=== PATIENT | male | born 1940 | race Caucasian/White ===

== ENCOUNTER 2024-10-16 13:25 | Inpatient (IN) | payer OTHER, MEDICARE, SELFPAY ==
[2024-10-16] VITALS (11 sets, daily range): BP systolic 82–158; BP diastolic 50–91; PULSE 69–98; RESP 17–20; TEMP 36.6–37.3; O2SAT 94–100; BMI 25.9
--- NOTE | 2024-10-16 13:56 | ED_ITS ---
HPI - Extremity Problem 2 General: Chief complaint: Extremity Problem,Nontraumatic Stated complaint: swelling in left arm Time Seen by Provider: 10/16/24 13:28 Source: patient and family (daughter in law) Mode of arrival: ambulatory Limitations: no limitations History of Present Illness: Patient is an 84-year-old male presents to ED today along with his sdulwudv-ia-cxy for concerns of pain and swelling to his left arm. Nyfpmqji-ph-ryy states patient was living in [place]. After the recent passing of his , he was sent to a correction/assisted living facility. Daughter in law states he was not being cared for there so she moved him home. She has only had him for approximately a week. She is not well versed in his medical history but her /son of the patient does know some. He tells me he has a history of Fletcher cell carcinoma and has required previous surgeries and radiation to the arm as well as a lymphadenectomy. They were told that that the arm was going to have some degree of chronic swelling following this. Daughter states he does have a chronic open wound to the lateral aspect of the elbow. She states she brought patient to the emergency department today because area seems significantly swollen, it is red and warm to the touch, has copious amounts of drainage, and patient is having significant tenderness. She states most of his previous medical care has been performed at [facility] as well as [place] in [place]. PMH (according to documentation from [facility][1]) is depression, Tovar Parkinson White, prior CVA, chronic thrombocytopenia, coronary artery disease, hypertension, hyperlipidemia, chronic kidney disease, dementia. Daughter states his only medication is his dementia pill and a vitamin supplement. MD Complaint: extremity pain, extremity swelling, joint swelling and joint pain Onset (ago): day(s) Pain Consistency: constant Location: left and upper extremity Radiation: distal Relieving factors: nothing Exacerbating factors: range of motion Associated symptoms: Reports no associated symptoms; Deny chest pain or fever(s) Related Data Home Medications ?Medication ?Instructions ?Recorded ?Confirmed aspirin 81 mg tablet,delayed 81 mg PO BEDTIME 10/16/24 10/16/24 release (Cinthia Low Dose Aspirin) cholecalciferol (vitamin D3) 125 125 mcg PO BEDTIME 10/16/24 mcg (5,000 unit) tablet (Vitamin D3) Allergies Allergy/AdvReac Type Severity Reaction Status Date / Time No Known Allergies Allergy Verified 10/16/24 13:38 Review of Systems 2 Const: Denies: fever(s), chills, body aches, fatigue or malaise Card: Denies: chest pain Resp: Denies: dyspnea GI: Denies: abdominal pain Musc: Reports: extremity pain, extremity swelling, joint pain, joint swelling, joint redness and joint warmth; Denies: neck pain or back pain Skin/Breast: Reports: other (drainage chronic L elbow wound) Neuro: Denies: numbness in extremities, weakness in extremities or sensory changes PFSH ED 2 PFSH: Medical History (Updated 10/16/24 @ 17:26 by CHASITY Childs) CKD (chronic kidney disease) Chronic wound of extremity Dementia MDD (major depressive disorder) CAD (coronary artery disease) Nogwz-Biclmirpz-Tqaij syndrome Chronic idiopathic thrombocytopenia Essential hypertension Augusto cell carcinoma Physical Exam 2 Const: COMMON NORMALS: no acute distress, average body habitus, no limitations, healthy appearing, alert and well nourished GENERAL APPEARANCE: cooperative OTHER: chronic dementia-at baseline per family HENMT: COMMON NORMALS: normocephalic and atraumatic HEAD & SCALP: normal to inspection, normocephalic and atraumatic Resp: COMMON NORMALS: normal respiratory effort and clear to auscultation bilaterally AUSCULTATION: clear to auscultation bilaterally Cardio: COMMON NORMALS: regular rate and regular rhythm RATE: regular rate RHYTHM: regular rhythm Extremity: NARRATIVE EXTREMITY EXAM: GENERAL: Yes normal exam except as noted OTHER: see graphic above; edema starting near proximal elbow and extending distally to his hand; he has significant pain with palpation and ROM of elbow, wrist or digits; radial pulse intact; sensation/cap refill chava; drainage noted from chronic lateral elbow wound-cultured; overlying erythema/warmth near elbow Neuro: COMMON NORMALS: moves all extremities, no focal motor deficits and no sensory deficits noted SENSORIUM/ORIENTATION: Yes alert Skin: NARRATIVE SKIN EXAM: see above Course 2 Consultations: Consultation #1: Dr. Carrasquillo-consulted on patient here in ED, recommending hospitalist admission, IV abx Consultation #2: Dr. Asfi-accepts hospitalization Vital Signs: Vital signs: Vital Signs Temperature 97.8 F 10/16/24 13:27 Pulse Rate 75 10/16/24 17:00 Respiratory Rate 20 H 10/16/24 14:42 Blood Pressure 153/75 10/16/24 17:00 Pulse Oximetry 95 10/16/24 17:00 Oxygen Delivery Me thod Room Air 10/16/24 17:00 MDM - Extremity (Nontraumatic) Medical Decision Making Patient will be admitted to the hospital for treatment of a left forearm cellulitis at this time. He has been consulted on by Dr. Carrasquillo. Please see his note for further orthopedic evaluation. He was started on IV antibiotics-ortho recommending compression/splint. He will be admitted to hospitalist. Medical Records I reviewed the patient's medical records. Lab Data I reviewed the patient's lab results. 10/16/24 14:28 10/16/24 14:[address] 10/16/24 14:14 IMPRESSION: 1. Elbow joint effusion with surrounding inflammatory changes suggestive of reactive versus septic arthritis. 2. No abscess formation. No bony erosions. 3. Skin irregularity at the lateral aspect of the elbow joint. Laboratory Results WBC 6.26 10^3/uL (3.29-11.43) 10/16/24 14:28 RBC 4.48 10^6/uL (3.85-5.65) 10/16/24 14:28 Hgb 14.20 g/dL (11.27-16.99) 10/16/24 14:28 Hct 42.6 % (37-53) 10/16/24 14:28 MCV 95.1 fl (82-101) 10/16/24 14:28 MCH 31.7 pg (27-33) 10/16/24 14:28 MCHC 33.3 g/dL (30-55) 10/16/24 14:28 RDW 11.9 % (12.1-15.1) L 10/16/24 14:28 Plt Count 143 10^3/cmm (157-399) L 10/16/24 14:28 MPV 10.2 fL (7.4-10.4) 10/16/24 14:28 Neut % (Auto) 56.6 % 10/16/24 14:28 Lymph % (Auto) 28.0 % 10/16/24 14:28 [place] % (Auto) 14.7 % 10/16/24 14:28 Eos % (Auto) 0.2 % 10/16/24 14:28 Baso % (Auto) 0.2 % 10/16/24 14:28 Neut # (Auto) 3.55 10^3/uL (1.8-7.7) 10/16/24 14:28 Lymph # (Auto) 1.8 10^3/uL (0.8-4.8) 10/16/24 14:28 [place] # (Auto) 0.9 10^3/uL (0.2-0.9) 10/16/24 14:28 Eos # (Auto) 0.0 10^3/uL (0.0-0.8) 10/16/24 14:28 Baso # (Auto) 0.0 10^3/uL (0.0-0.1) 10/16/24 14:28 Nucleated RBC % (auto) 0 % 10/16/24 14:28 Nucleated RBCs # 0.0 /100WBC 10/16/24 14:28 ESR 23 mm/hr (0-10) H 10/16/24 14:28 Sodium 140 mmol/L (136-145) 10/16/24 14:28 Potassium 3.9 mmol/L (3.5-5.1) 10/16/24 14:28 Chloride 104 mmol/L (98-107) 10/16/24 14:28 Carbon Dioxide 25 mmol/L (22-29) 10/16/24 14:28 Anion Gap 14.9 (5-19) 10/16/24 14:28 BUN 22 mg/dL (8-23) 10/16/24 14:28 Creatinine 1.0 mg/dL (0.7-1.2) 10/16/24 14:28 GFR Calculation Not Reportable 10/16/24 14:28 Glucose 105 mg/dL (65-115) 10/16/24 14:28 Calculated Osmolality 294 mOsm/kg (285-295) 10/16/24 14:28 Lactic Acid 1.7 mmol/L (0.5-2.2) 10/16/24 14:28 Calcium 9.0 mg/dL (8.5-10.5) 10/16/24 14:28 Total Bilirubin 0.7 mg/dL (0.15-1.2) 10/16/24 14:28 AST 24 U/L (0-40) 10/16/24 14:28 ALT 23 U/L (0-41) 10/16/24 14:28 Alkaline Phosphatase 187 U/L (40-130) H 10/16/24 14:28 Creatine Kinase 35 U/L (39-308) L 10/16/24 14:28 C-Reactive Protein 113.4 mg/L (0.0-4.9) H 10/16/24 14:28 Total Protein 6.1 g/dL (6.6-8.7) L 10/16/24 14:28 Albumin 3.1 g/dL (3.5-5.2) L 10/16/24 14:28 Globulin 3.0 g/dL (1.3-4.6) 10/16/24 14:28 All radiology interpretation(s) finalized by discharge Discharge Plan Discharge Patient Disposition: Admitted As Inpatient Clinical Impression: Augusto cell carcinoma, Cellulitis of left elbow Condition: Stable Prescriptions: No Action aspirin [Cinthia Low Dose Aspirin] 81 mg Tablet,Delayed Release (Dr/Ec) 81 mg PO BEDTIME cholecalciferol (vitamin D3) [Vitamin D3] 125 mcg (5,000 unit) Tablet 125 mcg PO BEDTIME Print Language: Chinese Coding Level of Care Code ED [employer] for [employer]
--- NOTE | 2024-10-16 14:00 | PC.NURSE ---
[facility] [place] [facility] [facility].
--- NOTE | 2024-10-16 14:14 | CTR_ITS ---
PROCEDURE INFORMATION: Exam: CT Left Upper Extremity With Contrast, Elbow Exam date and time: 10/16/2024 3:17 PM Age: 84 years old Clinical indication: Pain; Left; Prior surgery; Surgery date: 6+ months; Surgery type: Radiation therapy for skin cancer on lateral side of lt elbow 2 years ago; Additional info: Severe pain, edema, draining wound TECHNIQUE: Imaging protocol: Computed tomography of the left upper extremity with contrast. Exam focused on the elbow. Radiation optimization: All CT scans at this facility use at least one of these dose optimization techniques: automated exposure control; mA and/or kV adjustment per patient size (includes targeted exams where dose is matched to clinical indication); or iterative reconstruction. Contrast material: OMNIPAQUE 350; Contrast volume: 100 ml; Contrast route: INTRAVENOUS (IV); COMPARISON: No relevant prior studies available. RADIATION DOSE METRICS: Total DLP (mGy-cm): 611.92 FINDINGS: Bones/joints: Moderate elbow joint effusion. There is a 4 mm joint body in the volar aspect of the elbow joint. Skin thickening and irregularity at the lateral aspect of the elbow to be correlated with clinical exam. No organized collections. No acute fracture or dislocation. Soft tissues: Surgical clips in the left axilla. There is subcutaneous fat stranding surrounding the elbow. Subcutaneous calcifications overlying the olecranon, likely related to fat necrosis. CT/CT elbow LT w con [id number] IMPRESSION: 1. Elbow joint effusion with surrounding inflammatory changes suggestive of reactive versus septic arthritis. 2. No abscess formation. No bony erosions. 3. Skin irregularity at the lateral aspect of the elbow joint.
[2024-10-16 14:37] LABS: Basophils % 0.2 %; Eosinophils % 0.2 %; Hematocrit 42.6 % (37-53); Lymphocytes # 1.8 10^3/uL (0.8-4.8); Mean Corpuscular HGB Conc 33.3 g/dL (30-55); Mean Corpuscular Hemoglobin 31.7 pg (27-33); Mean Corpuscular Volume 95.1 fl (82-101); Mean Platelet Volume 10.2 fL (7.4-10.4); Monocytes # 0.9 10^3/uL (0.2-0.9); Monocytes % 14.7 %; Neutrophils # 3.55 10^3/uL (1.8-7.7); Neutrophils % 56.6 %; Nucleated Red Blood Cells % 0 %; Platelet Count 143 10^3/cmm (157-399); Red Blood Count 4.48 10^6/uL (3.85-5.65); Red Cell Distribution Width 11.9 % (12.1-15.1); White Blood Count 6.26 10^3/uL (3.29-11.43)
[2024-10-16] MEDS: vancomycin 1,250 MG/250 ML PIGGYBACK 166.67 MG IV (14:41)
[2024-10-16] MEDS: ondansetron 2 mg/ML SDV 2 mL 4 MG IVP (14:41)
[2024-10-16] MEDS: fentaNYL 50 mcg/mL INJ 2mL IVP (14:42)
[2024-10-16 14:52] LABS: Lactic Sepsis W/Reflex 1.7 mmol/L (0.5-2.2)
[2024-10-16 14:53] LABS: Alanine Aminotransferase 23 U/L (0-41); Albumin Level 3.1 g/dL (3.5-5.2); Alkaline Phosphatase 187 U/L (40-130); Anion Gap 14.9 (5-19); Aspartate Amino Transferase 24 U/L (0-40); Blood Urea Nitrogen 22 mg/dL (8-23); C Reactive Protein 113.4 mg/L (0.0-4.9); Carbon Dioxide 25 mmol/L (22-29); Chloride 104 mmol/L (98-107); Creatine Phosphokinase 35 U/L (39-308); Creatinine Clr Calc Pharmacy 57.9069; Glucose 105 mg/dL (65-115); Osmolality Calculated 294 mOsm/kg (285-295); Potassium 3.9 mmol/L (3.5-5.1); Sodium 140 mmol/L (136-145); Total Bilirubin 0.7 mg/dL (0.15-1.2); Total Protein 6.1 g/dL (6.6-8.7)
[2024-10-16 14:59] LABS: Erythrocyte Sedimentation Rate 23 mm/hr (0-10)
--- NOTE | 2024-10-16 15:42 | PC.PHAR ---
Family States Patient takes a pill for dementia ,but not sure what it is. They think it starts with a D .
--- NOTE | 2024-10-16 17:10 | PM.HP ---
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 Per family he recently moved to [place] 1 week ago. Prior to move he was living in [place], had 4 months ago and he was not doing well in a group home. Family assumed care and brought him to [place]. He has no current physician locally. Pt has hx of multiple surgeries for bony lesion removals, radiation and chemotherapy for carcinoma. Last seen by oncology 4 months ago. Per grandson failed chemo, surgeries and radiation, desired to monitor. No f/u thereafter. Per patient and family the L elbow has progressively worsened over past 1 week. Daughter concerned as it has been draining purulent fluid, has also become red, warm and swollen. Grandson had dPOA. Daughter states he is only taking his dementia medicine and is unsure of what else he is supposed to be on. After discussion with grandson, he is also taking Vit D3 but has stopped taking ASA, statin, and unknown anti-depressant. When asked about blood pressure or rate stabilizing medication he denied knowing of any medication. Pt complaining of significant pain when moving elbow. CT elbow (10/16/24): ?joint effusion with surrounding inflammatory changes suggestive of reactive vs septic arthritis. No visible abscess formation or bony erosion. Skin irregularities at lateral aspect. Dr. Carrasquillo was consulted from the ED and stated he will see in AM and should be started on antibiotics. ? Review of Systems General: Reports: 10 or more systems reviewed and unremarkable except in HPI and below Const: Denies: fever(s) or chills Eyes: Denies: change in vision or blurry vision ENMT: Denies: throat pain, odynophagia or hoarseness Card: Denies: chest pain, palpitations or dyspnea on exertion Resp: Denies: dyspnea, productive cough, non-productive cough or wheezing GI: Denies: abdominal pain, nausea, vomiting, diarrhea or constipation Musc: Reports: extremity pain (L upper extremity) and extremity swelling; Denies: neck pain, back pain or joint pain Skin/Breast: Reports: skin tenderness, skin swelling, changing lesions and lesions; Denies: rash or new lesions Neuro: Denies: headache(s), numbness in extremities or weakness in extremities Medications/Allergies Home Medications ?Medication ?Instructions ?Recorded ?Confirmed ?Last Taken ?Type aspirin 81 mg tablet,delayed 81 mg PO BEDTIME 10/16/24 10/16/24 10/15/24 20:00 History release (Cinthia Low Dose Aspirin) cholecalciferol (vitamin D3) 125 125 mcg PO BEDTIME 10/16/24 10/16/24 10/15/24 20:00 History mcg (5,000 unit) tablet (Vitamin D3) Allergies Allergy/AdvReac Type Severity Reaction Status Date / Time No Known Allergies Allergy Verified 10/16/24 13:38 PFSH Acute PFSH: Medical History (Updated 10/16/24 @ 17:26 by CHASITY Childs) CKD (chronic kidney disease) Chronic wound of extremity Dementia MDD (major depressive disorder) CAD (coronary artery disease) Hgbpz-Ddzwsffbx-Gfrxc syndrome Chronic idiopathic thrombocytopenia Essential hypertension [place] cell carcinoma Vitals/I&O/Wt Last Vital Signs Temp 97.8 F 10/16/24 13:27 Pulse 75 10/16/24 17:00 Resp 20 H 10/16/24 14:42 BP 153/75 10/16/24 17:00 Pulse Ox 95 10/16/24 17:00 O2 Del Method Room Air 10/16/24 17:00 10/16/24 10/16/24 10/16/24 06:59 14:59 22:59 Intake Total 250 / 250 Balance 250 / 250 Weight last 48 hrs Weight 170 lb Physical Exam Narrative: General: AOx3, no acute distress, well developed, well nourished, appears stated age psych: appropriate mood and affect. good judgment and insight. Eyes: conjunctiva clear w/o exudate or hemorrhage. non-icteric, EOM intact, PERRLA. no signs of nystagmus Nose: nasal mucosa pink, septum midline Oropharynx: good dentition, Neck: FROM, no lymphadenopathy, no tracheal deviation, non tender, thyroid gland normal w/o mass. supple Chest: atraumatic, symmetrical CVD: RRR, normal S1 and S2, no M/R/G. 2+ pulse x 4 extremities, no JVD, no carotid bruit. Lungs: clear lung sounds in all doe, no rhonchi, wheezing, rales. Abdomen: NT, ND, soft, NABS. No hepatosplenomegaly, no mass. umbilicus midline w/o herniation : not done on todays examination Rectal: not done on todays examination Spine: no visible deformities, FROM, 5/5 strength. no paraspinal ttp.non tender bony features. no discomfort with ROM Extremities: FROM and 5/5 strength in RUE and BLE. no visible joint abnormalities on active and passive ROM. -L shoulder: limited ROM 2/2 shoulder pain. no ttp -L hand: limited ROM 2/2 pain in L elbow. able to slowly move fingers in pain. full sensation -L shoulder: ALICE wrap just placed by ortho. refer to ortho and ED note for description. Neuro: CNII-XII grossly intact, no sensory abnormalities. Skin:? per ED and ortho note as wound is wrapped Data 10/16/24 14:28 10/16/24 14:28 Micro: Microbiology 10/16/24 14:04 Gram Stain - Final Elbow - Left 10/16/24 14:44 Blood Culture - Preliminary Blood SPECIMEN COLLECTED 10/16/24 14:28 Blood Culture - Preliminary Blood SPECIMEN COLLECTED A&P Assessment and plan (1) Chronic wound of extremity: (2) Augusto cell carcinoma: (3) Essential hypertension: (4) Chronic idiopathic thrombocytopenia: (5) Fsgwx-Cnkrfugkt-Grcon syndrome: (6) CAD (coronary artery disease): (7) MDD (major depressive disorder): (8) Dementia: (9) CKD (chronic kidney disease): Plan A: -chronic wound LEFT elbow -Hx of Augusto Cell carcinoma -s/p radiation and surgery -chronic thrombocytopenia -CAD -Cassius parkinson white syndrome -HTN -dementia -CKD P: -Admit to med surg -s/p Vanc, Zosyn and ancep in ED, fentanyl given -Abx: IV Vanc and Zosyn, pending blood cultures -pain: [place] scheduled, Toradol PRN, morphine PRN. -LR 75cc/hr + PO intake -Ortho Consulted: Discussed with Dr. Carrasquillo in ED -cardiac diet -NPO at ok for possible debridement -Lovenox 40mg -FULL CODE -will need to attain further records from [place]: [facility] as well as [facility] Indira Laboy (grandson): [phone] PDMP PDMP Reviewed: Not Reviewed Attestations Medical Necessity Statement*: will require 2 overnight stays for septic joint Coding Level of Care Code 04251 Diagnoses Chronic wound of extremity [place] cell carcinoma C4A.9 Essential hypertension I10 Chronic idiopathic thrombocytopenia D69.3 Emblb-Djxwrxeib-Dtxyg syndrome I45.6 CAD (coronary artery disease) I25.10 MDD (major depressive disorder) F32.9 Dementia F03.90 CKD (chronic kidney disease) N18.9
[2024-10-16] MEDS: ketorolac 30 mg/mL INJ IVP (17:12)
[2024-10-16] MEDS: morphine 4 mg/mL SDV 1 mL IVP (17:42)
[2024-10-16] MEDS: piperacillin-tazobactam 3.375 GM in sodium chloride 0.9% (plus) 50 ML IV (17:43)
--- NOTE | 2024-10-16 18:04 | PC.NURSE ---
AFTER PT WAS GIVEN 4MG MORPHINE IVP, PT O2 SAT WENT TO 87% WHILE RESTING WITH EYES CLOSED, THIS NURSE PLACED 2L NC, ELIJAH MA NOTIFIED AND AWARE.
[2024-10-16] MEDS: enoxaparin 40 mg/0.4 mL Syringe SUBCUT (18:55)
[2024-10-16] MEDS: sodium chloride 0.9% 1,000 ML 75 ML IV (18:56)
--- NOTE | 2024-10-16 23:05 | PM.CONSULT ---
Providers/Reason For Consult Consulting Physician/Specialty*: Barrie Carrasquillo DO/orthopedic surgery Reason for Consult*: Left elbow cellulitis/infection with draining wound Requesting Physician: Teresa Stein?PA-C Attending Physician: Avinash Asif MD History of Present Illness History of Present Illness Zeke Covington is a 84 year old male presents emergency department with left elbow cellulitis with draining wound. History reveals patient just relocated here from [place]. 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 He has a large area of radiation over the left elbow directly laterally directly over a lateral approach to the elbow joint. Over the site there is a small open draining wound with what appears to be fatty necrosis/edematous fluid/mild purulence. Patient is a poor historian presenting with Emergency Department with [id number] and did have GRADY Laboy on the phone while we had evaluation and discussion. Given patient's drainage cellulitis and increased pain and decreased mobility to left upper extremity orthopedics was consulted for evaluation and treatment recommendations. Denies any fevers chills or chest pain or shortness of breath. H&P per emergency department listed below: Patient is an 84-year-old male presents to ED today along with his [id number]-[id number] for concerns of pain and swelling to his left arm. Thtglfxw-nj-rws states patient was living in [place]. After the recent passing of his , he was sent to a [facility]/assisted living facility. Daughter in law states he was not being cared for there so she moved him home. She has only had him for approximately a week. She is not well versed in his medical history but her /son of the patient does know some. 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 They were told that that the arm was going to have some degree of chronic swelling following this. Daughter states he does have a chronic open wound to the lateral aspect of the elbow. She states she brought patient to the emergency department today because area seems significantly swollen, it is red and warm to the touch, has copious amounts of drainage, and patient is having significant tenderness. She states most of his previous medical care has been performed at [facility] as well as [facility] in [place]. PMH (according to documentation from [facility]) is depression, Tovar Parkinson White, prior CVA, chronic thrombocytopenia, coronary artery disease, hypertension, hyperlipidemia, chronic kidney disease, dementia. Daughter states his only medication is his dementia pill and a vitamin supplement. Review of Systems General: Reports: 10 or more systems reviewed and unremarkable except in HPI and below Medications/Allergies Home Medications ?Medication ?Instructions ?Recorded ?Confirmed ?Last Taken ?Type aspirin 81 mg tablet,delayed 81 mg PO BEDTIME 10/16/24 10/16/24 10/15/24 20:00 History release (Cinthia Low Dose Aspirin) cholecalciferol (vitamin D3) 125 125 mcg PO BEDTIME 10/16/24 10/16/24 10/15/24 20:00 History mcg (5,000 unit) tablet (Vitamin D3) Allergies Allergy/AdvReac Type Severity Reaction Status Date / Time No Known Allergies Allergy Verified 10/16/24 13:38 Current Medications Generic Name Dose Route Start Last Admin Trade Name Freq PRN Reason Stop Dose Admin Hydrocodone Bitart/Acetaminophen 1 tab 10/16/24 21:00 10/16/24 21:47 Hydrocodone-Acetaminophen 5-325 Mg Tablet PO 10/19/24 20:59 Not Given TID LILY Enoxaparin Sodium 40 mg 10/16/24 18:15 10/16/24 18:55 Enoxaparin 40 Mg/0.4 Ml Syringe SUBCUT 40 mg Q24H LILY Administration Sodium Chloride 1,000 mls @ 75 mls/hr 10/16/24 18:15 10/16/24 18:56 Sodium Chloride 0.9% IV 75 mls/hr .[id number] LILY Administration PFSH Acute PFSH: Medical History CKD (chronic kidney disease) Chronic wound of extremity Dementia MDD (major depressive disorder) CAD (coronary artery disease) Dkouj-Fuarhmuqk-Kjhqk syndrome Chronic idiopathic thrombocytopenia Essential hypertension Augusto cell carcinoma Vitals/I&O/Wt Last Vital Signs Temp 99.1 F 10/16/24 20:00 Pulse 98 10/16/24 20:00 Resp 17 10/16/24 20:00 BP 120/73 10/16/24 20:00 Pulse Ox 95 10/16/24 20:00 O2 Del Method Room Air 10/16/24 20:00 10/16/24 10/16/24 10/17/24 14:59 22:59 06:59 Intake Total 300 / 300 Balance 300 / 300 Weight last 48 hrs Weight 170 lb 9.6 oz Weight 170 lb Physical Exam Narrative: Orthopedic examination: Examination left upper extremity demonstrates patient has a draining wound with edematous fatty necrosis and mild purulence appreciated the wound is roughly a centimeter by centimeter in size with fibrinous slough around it. Localized over the entire lateral aspect of the posterior aspect of the elbow patient has cellulitis with skin cellulitic appearing changes with erythema. His compartments are soft and compressible. As he moves his fingers and wrist there is excessive edematous fluid that comes out of the wound. Patient has decreased ability to move his fingers he is able to tolerate gentle passive range of motion but he is very guarded on examination he has decreased elbow range of motion with pain associated as well, able to tolerate micromotion of the elbow. No subcutaneous emphysema no palpable fluctuance, no erythema in the upper arm. patient left upper extremity does have noticeable increased swelling compared to the opposite side which apparently is slightly more baseline due to his lymph node being excised. Left upper extremity warm well-perfused. Distal pulses palpable. Data 10/19/24 02:30 10/19/24 02:30 Other Labs: Labs 10/16/2024 listed below: WBC 6.26 Hemoglobin 14.20 Platelet count 143 ESR 23 CRP 113.4 Micro: Microbiology 10/16/24 14:04 Gram Stain - Final Elbow - Left 10/16/24 14:44 Blood Culture - Preliminary Blood SPECIMEN COLLECTED 10/16/24 14:28 Blood Culture - Preliminary Blood SPECIMEN COLLECTED Other CT: Radiologist's impression: Ordering Provider/Ordering MD: Teresa Stein Date of Service: 10/16/24 Procedure(s): CT elbow LT w con [id number] Accession Number(s): [id number] Report Number: [id number] PROCEDURE INFORMATION: Exam: CT Left Upper Extremity With Contrast, Elbow Exam date and time: 10/16/2024 3:17 PM Age: 84 years old Clinical indication: Pain; Left; Prior surgery; Surgery date: 6+ months; Surgery type: Radiation therapy for skin cancer on lateral side of lt elbow 2 years ago; Additional info: Severe pain, edema, draining wound TECHNIQUE: Imaging protocol: Computed tomography of the left upper extremity with contrast. Exam focused on the elbow. Radiation optimization: All CT scans at this facility use at least one of these dose optimization techniques: automated exposure control; mA and/or kV adjustment per patient size (includes targeted exams where dose is matched to clinical indication); or iterative reconstruction. Contrast material: OMNIPAQUE 350; Contrast volume: 100 ml; Contrast route: INTRAVENOUS (IV); COMPARISON: No relevant prior studies available. RADIATION DOSE METRICS: Total DLP (mGy-cm): 611.92 FINDINGS: Bones/joints: Moderate elbow joint effusion. There is a 4 mm joint body in the volar aspect of the elbow joint. Skin thickening and irregularity at the lateral aspect of the elbow to be correlated with clinical exam. No organized collections. No acute fracture or dislocation. Soft tissues: Surgical clips in the left axilla. There is subcutaneous fat stranding surrounding the elbow. Subcutaneous calcifications overlying the olecranon, likely related to fat necrosis. CT/CT elbow LT w con [id number] IMPRESSION: 1. Elbow joint effusion with surrounding inflammatory changes suggestive of reactive versus septic arthritis. 2. No abscess formation. No bony erosions. 3. Skin irregularity at the lateral aspect of the elbow joint. A&P Assessment and plan (1) Cellulitis of left elbow: (2) Chronic wound of extremity: (3) Clinton cell carcinoma: (4) Dementia: Plan N.p.o. at midnight Hospitalist to admit patient Orthopedics consult Labs reviewed Imaging reviewed Daily dressing changes with local wound care left elbow draining wound IV antibiotics per primary Place in posterior elbow splint Elevation and compressive Tubigrip for swelling Will have patient be n.p.o. at midnight just in case he worsens, plan will be to recheck CRP after 48 hours to see how he is responding to treatment. Patient and family understand agree with current plan. Questions answered. MDM: Patient is a pleasant 84-year-old gentleman with baseline dementia. He originally lived in [place] and is now relocated here as he is lost his and is here today with his [id number]. We did during my evaluation have his POA Benoit on the phone as well. History reveals he had Clinton cell carcinoma he has had excessive radiation and oncologic treatment to the left upper extremity as well as lymph nodes excised. He has a large area on the lateral aspect of his elbow with scars from radiation and this is where he has this chronic draining wound that according to family sounds as though this has been there for over a year. Unfortunately the family son is well versed on patient's medical history but do know all of the carcinoma previous surgeries radiation and lymphadenectomy. They do know he is had baseline edema/chronic swelling to the left upper extremity and chronic wound to the lateral elbow. Given his worsening pain and cellulitis/erythema and drainage debridement emergency department for evaluation. At this point in time I talked with him in detail about his current clinical picture. At this point in time his CT scan shows no drainable abscess. There is a small palpable joint effusion on CT per the radiologist. At this point in time ideal scenario would be for a joint aspiration however given his chronic wound in the area of cellulitis that is expansile over the entire lateral and posterior aspects of the elbow this limits any ability for a joint aspiration as the [place] is soft spot is covered completely with cellulitis I talked to them about the concern with introducing a needle through patient's current skin infection and introducing this into the joint whereas if the joint swelling is more just from inflammatory versus septic which at this point in time is unable to be differentiated from an imaging standpoint. As a result we talked about options here moving forward given his age as well as with this area of having excessive radiation this is directly over the lateral aspect of the elbow where the draining wound is where patient has had his excessive radiation and radiation changes throughout his skin on this aspect as a result I feel as though having a large open incision in this area will now render a even larger wound that we will have no ability to heal given his radiation in this area. As a result I talked about them with this in detail and I think the best approach would be for treating his cellulitis from the standpoint of IV antibiotics empirically admission by hospitalist team will work on compressive dressings as well as a elbow splint just to give him a period of immobilization. My plan would be to recheck him tomorrow morning to make sure he is having some improvement in his symptoms would like to recheck his CRP after 48 hours to see how he is trended to and responded to the IV antibiotics.. At that point in time goal would be after 48 hours if cellulitis is resolved now I would actually have a spot through the [place] a soft spot to do a joint aspiration but at this point time this is covered with cellulitis and would be in my opinion not appropriate to proceeding with this today which I talked about this with them in detail and they were completely agreeable and understanding with current plan. This point time will admit to hospitalist IV antibiotics orthopedics will continue to follow n.p.o. midnight just in case he continues to worsen and we will recheck CRP in 48 hours. Patient, kershpfi-[id number], POA understand and agree with current plan. All questions answered. 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
[2024-10-17] VITALS (8 sets, daily range): BP systolic 112–150; BP diastolic 63–86; PULSE 66–96; RESP 16–18; TEMP 36.4–36.9; O2SAT 93–97
[2024-10-17] MEDS: piperacillin-tazobactam 3.375 GM in sodium chloride 0.9% (plus) 50 ML IV ×3 (02:54→17:39)
[2024-10-17] MEDS: VANCOMYCIN ADD-Vantage 750 MG in 0.9% NaCl ADD-Vantage 250 ML 250 MG IV ×2 (04:47→16:31)
--- NOTE | 2024-10-17 07:08 | PHA.VACGOAL ---
Vancomycin Goal - Goal Vancomycin Goal:: 10-15 mg/L Vancomycin Indication:: SSTI - Therapy Current therapy:: Pip/Tazo Day of therpy:: Day [1]of [] . Actual body weight (kg): 76.884 kg - Data Labs: WBC Cancelled 10/17/24 05:45 Corrected WBC Cancelled 10/17/24 05:45 RBC Cancelled 10/17/24 05:45 Hgb Cancelled 10/17/24 05:45 Hct Cancelled 10/17/24 05:45 MCV Cancelled 10/17/24 05:45 MCH Cancelled 10/17/24 05:45 MCHC Cancelled 10/17/24 05:45 RDW Cancelled 10/17/24 05:45 Sodium 140 mmol/L (136-145) 10/16/24 14:28 Potassium 3.9 mmol/L (3.5-5.1) 10/16/24 14:28 Chloride 104 mmol/L (98-107) 10/16/24 14:28 Carbon Dioxide 25 mmol/L (22-29) 10/16/24 14:28 Anion Gap 14.9 (5-19) 10/16/24 14:28 BUN 22 mg/dL (8-23) 10/16/24 14:28 Creatinine 1.0 mg/dL (0.7-1.2) 10/16/24 14:28 GFR Calculation Not Reportable 10/16/24 14:28 Treatment plan:: new consult Regimen:: New start vancomcyin for SSTI. No history of vancomycin found. Given load dose of 1250 mg given in ER. Started on maintenance dose of 750 mg q12h.
[2024-10-17] MEDS: pantoprazole DR 40 mg Tablet PO (08:48)
[2024-10-17] MEDS: HYDROcodone-acetaminophen 5-325 mg Tablet 1 TAB PO ×2 (08:49→15:05)
--- NOTE | 2024-10-17 09:46 | PC.CHAP ---
Pastoral Care Encounter/Spiritual Assessment Type of Contact [] Declined i&c technician visit [] Patient/Family/Request visit [] Outpatient visit [] Follow-up visit [] Physician referral [] Code/Alert [x] Routine visit [] Staff referral [] Actively dying [x] Patient sleeping [] Family support [] [] Out of room [] Palliative care [] [] Receiving care in room [] Pre-surgical visit [] Trauma [] Long length of stay [] ICU visit [] Other: Relational/Emotional Strength [] Patient feels connected with others/family/visitors/staff [] Distress [] Loneliness/isolation [] Abandonment Spirituality of Patient [] Person of Ct [] Attends Gnosticism of their Ct [] Believes in Prayer [] Reads Bible or Adventist materials [] There are Spiritual issues to be addressed [employer] Interventions [x] Prayer [] Active listening [] Non-anxious presence [] Spiritual/emotional support [] Crisis/trauma care [] Spiritual counseling [] Bereavement support [] Provided bereavement packet [] Provided Bible/devotional materials [] Provided toy/stuffed animal, coloring book to patient or family member [] Provided Communion [] Anointing/[place] [] Salvation [] Completed spiritual assessment [] Other: Impact on Illness or Injury [] Angry [] Fearful [] Anxious [] Often cries [] Exhaustion [] Unable to work [] Unable to attend latter-day [] Unable to walk/stand [] Unable to read [] Unable to drive [] Unable to eat/drink [] Unable to sleep [] Unable to be with family [] Patient intubated [] Other: Summary Time spent with patient
[2024-10-17 13:16] LABS: Estmated Average Glucose 100; Hemoglobin A1C 5.1 % (4.0-6.0)
[2024-10-17 13:39] LABS: Iron 31 ug/dL (59-158); Thyroid Stimulating Hormone 1.43 uIU/mL (0.27-4.20); Vitamin B12 334 pg/mL (232-1245)
[2024-10-17 13:46] LABS: Total Iron Binding Capacity 163 mcg/dl; Unsaturated Iron Binding 132 ug/dL (112-347)
--- NOTE | 2024-10-17 14:58 | P.PN_ITS ---
Subjective 2 Subjective: Hospital course, labs appreciated. Patient seen with family at bedside. Patient laying comfortably in bed. States pain is improving. Denies any nausea, vomiting, headache. Vitals/I&O/Wt Last Vital Signs Temp 98.3 F 10/17/24 11:52 Pulse 67 10/17/24 11:52 Resp 18 10/17/24 11:52 BP 121/63 10/17/24 11:52 Pulse Ox 95 10/17/24 11:52 O2 Del Method Room Air 10/17/24 11:52 10/16/24 10/17/24 10/17/24 22:59 06:59 14:59 Intake Total 300 / 300 300 / 600 50 / 50 Output Total 450 / 450 Balance 300 / 300 300 / 600 -400 / -400 Weight last 48 hrs Weight 76.884 kg Weight 77.383 kg Weight 77.111 kg Physical Exam 2 Narrative: General: AOx3, no acute distress, well developed, well nourished, appears stated age psych: appropriate mood and affect. good judgment and insight. Eyes: conjunctiva clear w/o exudate or hemorrhage. non-icteric, EOM intact, PERRLA. no signs of nystagmus Nose: nasal mucosa pink, septum midline Oropharynx: good dentition, Neck: FROM, no lymphadenopathy, no tracheal deviation, non tender, thyroid gland normal w/o mass. supple Chest: atraumatic, symmetrical CVD: RRR, normal S1 and S2, no M/R/G. 2+ pulse x 4 extremities, no JVD, no carotid bruit. Lungs: clear lung sounds in all doe, no rhonchi, wheezing, rales. Abdomen: NT, ND, soft, NABS. No hepatosplenomegaly, no mass. umbilicus midline w/o herniation : not done on todays examination Rectal: not done on todays examination Spine: no visible deformities, FROM, 5/5 strength. no paraspinal ttp.non tender bony features. no discomfort with ROM Extremities: FROM and 5/5 strength in RUE and BLE. no visible joint abnormalities on active and passive ROM. -L shoulder: limited ROM 2/2 shoulder pain. no ttp -L hand: limited ROM 2/2 pain in L elbow. able to slowly move fingers in pain. full sensation -L shoulder: ALICE wrap just placed by ortho. refer to ortho and ED note for description. Neuro: CNII-XII grossly intact, no sensory abnormalities. Skin:? per ED and ortho note as wound is wrapped Data 10/16/24 14:28 10/16/24 14:28 Micro: Microbiology 10/16/24 14:44 Blood Culture - Preliminary Blood NEGATIVE TO DATE 10/16/24 14:28 Blood Culture - Preliminary Blood NEGATIVE TO DATE 10/16/24 14:04 Gram Stain - Final Elbow - Left Abscess Culture - Preliminary Coag positive Staphylococcus A&P Assessment and plan (1) Chronic wound of extremity: (2) [place] cell carcinoma: (3) Essential hypertension: (4) Chronic idiopathic thrombocytopenia: (5) Zznlw-Wmvjszrde-Wdapl syndrome: (6) CAD (coronary artery disease): (7) MDD (major depressive disorder): (8) Dementia: (9) CKD (chronic kidney disease): Plan ? Chronic wound of LEFT elbow ? Concern for possible septic arthritis - Hx of Augusto Cell carcinoma -s/p radiation and surgery ? Chronic thrombocytopenia - CAD - Cassius parkinson white syndrome -HTN -Dementia -CKD Orthopedic has been consulted. Patient started empirically on IV antibiotics with Comycin and Zosyn. Check MRSA swab. Follow-up blood culture. Would benefit from possible diagnostic joint arthrocentesis for wound cultures. Will confirm with orthopedic team. Change pain medications to as needed when standing. DC ketorolac as patient has history of CKD. Continue with morphine as needed. DC IV fluids. Wound cultures for now growing coag positive staph Appreciate documentation from [facility] and [facility] from [place] [facility] soft cardiac diet. N.p.o. as per orthopedic team. Lovenox for DVT prophylaxis Protonix for PUD prophylaxis dPOA Benoit pugh): [phone] PDMP PDMP Reviewed: Not Reviewed Attestations 2 Medical Necessity Statement*: Requested hospitalization for management of chronic wound of the left elbow with concerns of septic arthritis Diagnoses Chronic wound of extremity [place] cell carcinoma C4A.9 Essential hypertension I10 Chronic idiopathic thrombocytopenia D69.3 Kehmx-Bfbawihto-Ikqvl syndrome I45.6 CAD (coronary artery disease) I25.10 MDD (major depressive disorder) F32.9 Dementia F03.90 CKD (chronic kidney disease) N18.9
[2024-10-17 15:05] LABS: MRSA PCR OZH (swab) NOT DETECTED (Negative)
[2024-10-17 15:30] LABS: Alanine Aminotransferase 39 U/L (0-41); Albumin Level 2.9 g/dL (3.5-5.2); Alkaline Phosphatase 216 U/L (40-130); Aspartate Amino Transferase 41 U/L (0-40); Blood Urea Nitrogen 25 mg/dL (8-23); Calcium 8.3 mg/dL (8.5-10.5); Carbon Dioxide 22 mmol/L (22-29); Chloride 108 mmol/L (98-107); Creatinine Clr Calc Pharmacy 52.5761; Globulin 2.2 g/dL (1.3-4.6); Glucose 115 mg/dL (65-115); Osmolality Calculated 297 mOsm/kg (285-295); Sodium 141 mmol/L (136-145); Total Bilirubin 0.8 mg/dL (0.15-1.2); Total Protein 5.1 g/dL (6.6-8.7)
[2024-10-17] MEDS: enoxaparin 40 mg/0.4 mL Syringe SUBCUT (17:08)
--- NOTE | 2024-10-17 18:42 | P.PN_ITS ---
Subjective 2 Subjective: Patient seen and examined today daughter in law accompanies and present at bedside. Patient has been in the long-arm posterior splint with a compressive sleeve as well as elevation. He has been n.p.o. since midnight. Patient states his pain is improved as well as he is showing considerable improvement in his finger range of motion with nowhere near the pain he was having yesterday. At this point time he is showing good signs of improvement with IV antibiotics. This point I am talked about this with them and plan would be to continue with the IV antibiotics with a goal of taking down his splint and dressing tomorrow as well as rechecking his CRP in the morning. Will have him n.p.o. at midnight just in case. Vitals/I&O/Wt Last Vital Signs Temp 98.4 F 10/17/24 16:00 Pulse 70 10/17/24 16:00 Resp 18 10/17/24 16:00 BP 129/70 10/17/24 16:00 Pulse Ox 93 10/17/24 16:00 O2 Del Method Room Air 10/17/24 16:00 10/17/24 10/17/24 10/17/24 06:59 14:59 22:59 Intake Total 300 / 600 50 / 50 1250 / 1300 Output Total 450 / 450 200 / 650 Balance 300 / 600 -400 / -400 1050 / 650 Weight last 48 hrs Weight 169 lb 8 oz Weight 170 lb 9.6 oz Weight 170 lb Physical Exam 2 Narrative: Examination today demonstrates examination of the left upper extremity demonstrates his upper extremities propped on pillows and an elevation posterior long-arm splint on in place and left on in place. His swelling above and below the splint is much improved. He is actively moving his fingers now with minimal pain or discomfort. Fingertips warm well-perfused brisk capillary refill less than 2 seconds sensation intact light touch distally. Able to tolerate passive range of motion of the fingers wrist. Data 10/19/24 02:30 10/19/24 02:30 Other Labs: AM labs 10/17/24 listed below sodium-141 Potassium?4 BUN?25 Creatinine 1.1 Micro: Microbiology 10/16/24 14:44 Blood Culture - Preliminary Blood NEGATIVE TO DATE 10/16/24 14:28 Blood Culture - Preliminary Blood NEGATIVE TO DATE 10/16/24 14:04 Gram Stain - Final Elbow - Left Abscess Culture - Preliminary Coag positive Staphylococcus Xray Ortho: Radiologist's impression: rdering Provider/Ordering MD: Barrie Carrasquillo Date of Service: 10/17/24 Procedure(s): XR elbow LT 2V 87214 Accession Number(s): [id number] Report Number: [id number] PROCEDURE INFORMATION: Exam: XR Left Elbow Exam date and time: 10/17/2024 6:48 PM Age: 84 years old Clinical indication: Pain; Left; F/u to CT yesteray PT would not move elbow got best images i could; Additional info: Left elbow pain, baseline XR for followup TECHNIQUE: Imaging protocol: Radiologic exam of the left elbow. Views: 1 or 2 views. COMPARISON: CT elbow LT w con [id number] 10/16/2024 3:17 PM FINDINGS: Bones/joints: No acute fracture is detected. There are degenerative changes involving the elbow with subchondral sclerosis and small marginal spurs. Bony detail is partially obscured by overlying splint material. A small 4 mm calcific density is seen projecting over the anterior soft tissues compatible with the calcified loose body seen on the prior CT. Soft tissues: There is soft tissue edema. Evaluation of joint effusion is markedly limited due to obliquity on both views. XR/XR elbow LT 2V [id number] IMPRESSION: 1. Degenerative changes involving the elbow. 2. No acute fracture detected. 3. Tiny 4 mm calcified loose body, also seen on the prior CT. 4. Limited evaluation of joint effusion due to obliquity on both views and overlying splint material. 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 at midnight Hospitalist as primary Orthopedics consult Labs reviewed today Imaging reviewed?x-rays ordered to have baseline elbow x-ray films to follow-up in the outpatient setting Maintain splint IV antibiotics per primary Elevation and compressive Tubigrip for swelling Will have patient be n.p.o. at midnight just in case he worsens, plan will be to recheck CRP tomorrow morning to see how he is responding to treatment as well as will take down his dressing for further evaluation and inspection to see if he has had resolution in his swelling to see if this could accommodate for possible joint aspiration. Once again I do have significant reservations on making a large incision of I&D this area right directly over where his radiation skin issue and feel this may cause more problems than benefit as he is already responded to IV antibiotics. At this point in time he is showing Encouraging improvement results on a conservative approach with IV antibiotics will see how he is responded tomorrow as well as recheck of his CRP and clinical examination. Patient's and [id number] understands and agrees with current plan. All questions answered. 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
[2024-10-18] VITALS (8 sets, daily range): BP systolic 126–160; BP diastolic 63–86; PULSE 53–102; RESP 16–18; TEMP 36.4–37.6; O2SAT 94–99
[2024-10-18] MEDS: piperacillin-tazobactam 3.375 GM in sodium chloride 0.9% (plus) 50 ML IV ×2 (01:10→09:53)
[2024-10-18] MEDS: HYDROcodone-acetaminophen 5-325 mg Tablet 1 TAB PO ×2 (01:12→11:04)
[2024-10-18] MEDS: VANCOMYCIN ADD-Vantage 750 MG in 0.9% NaCl ADD-Vantage 250 ML 250 MG IV ×2 (04:58→16:07)
[2024-10-18 06:16] LABS: Basophils % 0.3 %; Eosinophils % 0.8 %; Hematocrit 28.4 % (37-53); Lymphocytes # 1.5 10^3/uL (0.8-4.8); Lymphocytes % 37.2 %; Mean Corpuscular HGB Conc 32.4 g/dL (30-55); Mean Corpuscular Hemoglobin 31.5 pg (27-33); Mean Corpuscular Volume 97.3 fl (82-101); Mean Platelet Volume 10.6 fL (7.4-10.4); Monocytes # 0.4 10^3/uL (0.2-0.9); Monocytes % 10.8 %; Neutrophils # 1.96 10^3/uL (1.8-7.7); Neutrophils % 50.1 %; Nucleated Red Blood Cells % 0 %; Platelet Count 102 10^3/cmm (157-399); Red Blood Count 2.92 10^6/uL (3.85-5.65)
[2024-10-18 06:29] LABS: Alanine Aminotransferase 20 U/L (0-41); Alkaline Phosphatase 141 U/L (40-130); Anion Gap 10.7 (5-19); Aspartate Amino Transferase 18 U/L (0-40); Blood Urea Nitrogen 18 mg/dL (8-23); Carbon Dioxide 17 mmol/L (22-29); Chloride 120 mmol/L (98-107); Creatinine Clr Calc Pharmacy 72.2922; Globulin 1.5 g/dL (1.3-4.6); Glucose 72 mg/dL (65-115); Osmolality Calculated 300 mOsm/kg (285-295); Sodium 145 mmol/L (136-145); Total Bilirubin 0.5 mg/dL (0.15-1.2); Total Protein 3.5 g/dL (6.6-8.7)
[2024-10-18 06:35] LABS: Calcium 5.5 mg/dL (8.5-10.5); Potassium 2.7 mmol/L (3.5-5.1)
[2024-10-18 06:39] LABS: C Reactive Protein 76.4 mg/L (0.0-4.9); Chol HDL Ratio 3.72 mg/dL (1.0-5.00); Cholesterol 93 mg/dL (0-200); HDL Cholesterol 25 mg/dL (60-100); LDL Cholesterol Calculated 52 mg/dL (50-129); Magnesium 1.3 mg/dL (1.7-2.3); Triglycerides 82 mg/dL (0-150); VLDL Cholestrol Calculation 16 mg/dL (0-30)
[2024-10-18 06:56] LABS: Folate Level 6.7 ng/mL (4.5-32.2)
[2024-10-18 07:14] LABS: Slide Review Slide Review Perform
--- NOTE | 2024-10-18 07:58 | P.PN_ITS ---
Subjective 2 Subjective: Patient seen and examined today [id number] at bedside. CRP down trended. Continued normal white count. Patient clinically has had significant improvement. Splint taken down dressing noted still saturation however near complete resolution of patient's cellulitis over the lateral aspect of the elbow now with a noncellulitic area over the Ankeney and saw spot amenable for a joint aspiration which I talked about this with the patient as well as the [id number] today and through shared decision making they elect to proceed with a joint aspiration as this would potentially rule in or out septic arthritis as well as give possible bacteria/cultures to be tested to help de- escalate antibiotics Vitals/I&O/Wt Last Vital Signs Temp 98.3 F 10/18/24 05:05 Pulse 70 10/18/24 06:00 Resp 16 10/18/24 05:05 BP 160/74 10/18/24 05:05 Pulse Ox 99 10/18/24 05:05 O2 Del Method Room Air 10/18/24 05:05 O2 Flow Rate 2 10/17/24 20:00 10/17/24 10/18/24 10/18/24 22:59 06:59 14:59 Intake Total 1300 / 1350 300 / 1650 Output Total 200 / 650 Balance 1100 / 700 300 / 1000 Weight last 48 hrs Weight 174 lb Weight 169 lb 8 oz Weight 170 lb 9.6 oz Weight 170 lb Physical Exam 2 Narrative: Examination today demonstrates examination of the left upper extremity demonstrates his upper extremities propped on pillows and an elevation posterior long-arm splint on in place, this subsequently taken down completely patient still has saturation over his chronic wound mostly of edematous drainage. Significant resolution of his swelling as well as improvement in his hand and wrist motion with decreasing pain. His cellulitis has improved considerably with now no cellulitis over the anconeus soft spot for joint aspiration. He is actively moving his fingers now with minimal pain or discomfort. Fingertips warm well-perfused brisk capillary refill less than 2 seconds sensation intact light touch distally. Able to tolerate passive range of motion of the fingers wrist. Data 10/19/24 02:30 10/19/24 02:30 Other Labs: AM labs 10/18/24 CRP 76.4 WBC 3.9 Hemoglobin 9.2 Micro: Microbiology 10/16/24 14:44 Blood Culture - Preliminary Blood NEGATIVE TO DATE 10/16/24 14:28 Blood Culture - Preliminary Blood NEGATIVE TO DATE 10/16/24 14:04 Gram Stain - Final Elbow - Left Abscess Culture - Preliminary Coag positive Staphylococcus A&P Assessment and plan (1) Cellulitis of left elbow: (2) Chronic wound of extremity: (3) [place]child cell carcinoma: (4) Dementia: Plan N.p.o. at midnight, may have a diet today Hospitalist as primary Orthopedics consult Labs reviewed today-downtrending CRP Continued clinical improvement Maintain splint IV antibiotics per primary Elevation and compressive Tubigrip for swelling No plan for acute orthopedic surgical intervention at this time Left elbow joint aspiration 1 cc of bloody joint fluid?sent for anaerobic cultures, cell count, crystals Orthopedics will continue to follow at this time at this point in time no further plan for any orthopedic surgical intervention is once again we did talk about this in detail with the patient family that I do worry with the excessive radiation over this lateral aspect of the elbow where the chronic wound is I feel further opening of this area will only lead to further wound issues down the road which they both agree and at this point time we will continue to proceed with antibiotics as patient has responded appropriately with these. Patient family understand agree with current plan. Questions answered. Ortho will evaluate tomorrow and Dressing change. Procedure in detail: Patient this point in time has had improvement in his cellulitis over the lateral aspect of the elbow now patient has no cellulitic signs over the area of the Ankeney is soft spot as a result we talked about his treatment options here moving forward at this point in time patient as well as [id number] agreeable to proceeding with the joint aspiration as hopes for this to help further guide our treatment. At this point in time landmarks were appropriately marked out the left elbow was prepped in standard orthopedic fashion over the anconeus soft spot I subsequently triangulated the lateral epicondyle olecranon process and the radial head in the soft spot of the anconeus. I then subsequently keeping the elbow pronated as well as flexed at 90 degrees inserted in 18-gauge needle directly into the ulnohumeral joint space and subsequently aspirated roughly 1 cc of bloody joint fluid. Patient tolerated this well without issues or complications this was then sent for specimens as stated above by the nursing team. PDMP PDMP Reviewed: Not Reviewed Attestations 2 Medical Necessity Statement*: Requested hospitalization for management of chronic wound of the left elbow with concerns of septic arthritis Coding Level of Care Code Acute Code for Chg Fwd Diagnoses Cellulitis of left elbow L03.114 Chronic wound of extremity Fairchild cell carcinoma C4A.9 Dementia F03.90 Time Spent (min) 20
[2024-10-18 09:21] LABS: Crystals, Fluid SENT TO PATH; Cyto Order Verification No Order
[2024-10-18 09:22] LABS: Apprearance, Body Fluid BLOODY; Color, Body Fluid RED
[2024-10-18 09:26] LABS: Fluid Laterality LEFT ELBOW; PATH Referral YES
[2024-10-18] MEDS: pantoprazole DR 40 mg Tablet PO (09:53)
[2024-10-18 10:06] LABS: Alanine Aminotransferase 27 U/L (0-41); Albumin Level 2.6 g/dL (3.5-5.2); Alkaline Phosphatase 214 U/L (40-130); Anion Gap 12.8 (5-19); Aspartate Amino Transferase 25 U/L (0-40); Blood Urea Nitrogen 21 mg/dL (8-23); Calcium 8.2 mg/dL (8.5-10.5); Carbon Dioxide 24 mmol/L (22-29); Chloride 108 mmol/L (98-107); Globulin 2.6 g/dL (1.3-4.6); Glucose 136 mg/dL (65-115); Osmolality Calculated 297 mOsm/kg (285-295); Potassium 3.8 mmol/L (3.5-5.1); Sodium 141 mmol/L (136-145); Total Bilirubin 0.8 mg/dL (0.15-1.2); Total Protein 5.2 g/dL (6.6-8.7)
--- NOTE | 2024-10-18 10:21 | PC.CHAP ---
Pastoral Care Encounter/Spiritual Assessment Type of Contact [] Declined disintegrator feeder visit [] Patient/Family/Request visit [] Outpatient visit [] Follow-up visit [] Physician referral [] Code/Alert [] Routine visit [] Staff referral [] Actively dying [] Patient sleeping [] Family support [] [] Out of room [] Palliative care [] [x] Receiving care in room [] Pre-surgical visit [] Trauma [] Long length of stay [] ICU visit [] Other: Relational/Emotional Strength [] Patient feels connected with others/family/visitors/staff [] Distress [] Loneliness/isolation [] Abandonment Spirituality of Patient [] Person of Ct [] Attends Hoahaoism of their Ct [] Believes in Prayer [] Reads Bible or Sikh materials [] There are Spiritual issues to be addressed Apprentice Painter Hand Interventions [] Prayer [] Active listening [] Non-anxious presence [] Spiritual/emotional support [] Crisis/trauma care [] Spiritual counseling [] Bereavement support [] Provided bereavement packet [] Provided Bible/devotional materials [] Provided toy/stuffed animal, coloring book to patient or family member [] Provided Communion [] Anointing/Falls [] Salvation [] Completed spiritual assessment [] Other: Impact on Illness or Injury [] Angry [] Fearful [] Anxious [] Often cries [] Exhaustion [] Unable to work [] Unable to attend mormon [] Unable to walk/stand [] Unable to read [] Unable to drive [] Unable to eat/drink [] Unable to sleep [] Unable to be with family [] Patient intubated [] Other: Summary Time spent with patient
--- NOTE | 2024-10-18 13:02 | P.PN_ITS ---
Subjective 2 Subjective: No events overnight. Patient states she is feeling better. Denies any nausea, vomiting, headache. Has remained hemodynamically stable and afebrile. Vitals/I&O/Wt Last Vital Signs Temp 98.2 F 10/18/24 11:32 Pulse 60 10/18/24 11:32 Resp 17 10/18/24 11:32 BP 133/67 10/18/24 11:32 Pulse Ox 96 10/18/24 11:32 O2 Del Method Room Air 10/18/24 11:32 O2 Flow Rate 2 10/17/24 20:00 10/17/24 10/18/24 10/18/24 22:59 06:59 14:59 Intake Total 1300 / 1350 300 / 1650 480 / 480 Output Total 200 / 650 Balance 1100 / 700 300 / 1000 480 / 480 Weight last 48 hrs Weight 78.925 kg Weight 76.884 kg Weight 77.383 kg Weight 77.111 kg Physical Exam 2 Narrative: General: AOx3, no acute distress, well developed, well nourished, appears stated age psych: appropriate mood and affect. good judgment and insight. Eyes: conjunctiva clear w/o exudate or hemorrhage. non-icteric, EOM intact, PERRLA. no signs of nystagmus Nose: nasal mucosa pink, septum midline Oropharynx: good dentition, Neck: FROM, no lymphadenopathy, no tracheal deviation, non tender, thyroid gland normal w/o mass. supple Chest: atraumatic, symmetrical CVD: RRR, normal S1 and S2, no M/R/G. 2+ pulse x 4 extremities, no JVD, no carotid bruit. Lungs: clear lung sounds in all doe, no rhonchi, wheezing, rales. Abdomen: NT, ND, soft, NABS. No hepatosplenomegaly, no mass. umbilicus midline w/o herniation : not done on todays examination Rectal: not done on todays examination Spine: no visible deformities, FROM, 5/5 strength. no paraspinal ttp.non tender bony features. no discomfort with ROM Extremities: FROM and 5/5 strength in RUE and BLE. no visible joint abnormalities on active and passive ROM. -L shoulder: limited ROM 2/2 shoulder pain. no ttp -L hand: limited ROM 2/2 pain in L elbow. able to slowly move fingers in pain. full sensation -L shoulder: ALICE wrap just placed by ortho. refer to ortho and ED note for description. Neuro: CNII-XII grossly intact, no sensory abnormalities. Skin:? per ED and ortho note as wound is wrapped Data 10/18/24 05:30 10/18/24 09:43 Micro: Microbiology 10/16/24 14:04 Gram Stain - Final Elbow - Left Abscess Culture - Final Staphylococcus aureus 10/16/24 14:44 Blood Culture - Preliminary Blood NEGATIVE TO DATE 10/16/24 14:28 Blood Culture - Preliminary Blood NEGATIVE TO DATE A&P Assessment and plan (1) Chronic wound of extremity: (2) [place] cell carcinoma: (3) Essential hypertension: (4) Chronic idiopathic thrombocytopenia: (5) Frubn-Cevytbmdk-Oupzp syndrome: (6) CAD (coronary artery disease): (7) MDD (major depressive disorder): (8) Dementia: (9) CKD (chronic kidney disease): Plan ? Chronic wound of LEFT elbow ? Concern for possible septic arthritis - Hx of Augusto Cell carcinoma -s/p radiation and surgery ? Chronic thrombocytopenia - CAD - Cassius parkinson white syndrome -HTN -Dementia -CKD Orthopedic has been consulted. Patient started empirically on IV antibiotics with Vancomycin and Zosyn. Check MRSA swab. Follow-up blood culture. Would benefit from possible diagnostic joint arthrocentesis for wound cultures. Will confirm with orthopedic team. Patient underwent arthrocentesis on 10/18. MRSA swab negative. Wound culture from superficial abscess growing MSSA. Will consult ID for further recommendations. Patient will most likely need 4 to 6 weeks of IV antibiotics. If blood cultures remain negative we will plan for PICC line placement. Follow-up fluid culture results. Fluid studies not performed as the fluid had clotted. Appreciate documentation from [facility] and [facility] from [place] [facility] soft cardiac diet. 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
[2024-10-18 15:22] LABS: Vancomycin Trough 14.6 ug/mL (10-15)
--- NOTE | 2024-10-18 17:20 | PM.CONSULT ---
Providers/Reason For Consult Consulting Physician/Specialty*: Dennise Zimmer MD / Infectious Disease Reason for Consult*: MSSA joint infection Requesting Physician: Kain Noguera MD Attending Physician: Kain Noguera MD History of Present Illness History of Present Illness Zeke Covington is a 84 year old male who has recently moved into [place] from [place]. It appears he was brought in by family to [place] after his and there was no one to care for him. 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 He has had surgeries and chemoradiation in the past. Prior to recently, his family last saw him 3 years ago at which time he had an ulceration around his left wrist. They are unaware at what point he developed an open wound over his left elbow but state that there estimate is it has been around at least for a year. They state he has been treated for this in the past but cannot tell me for sure if he has received IV antibiotics in the past. They state that all his records are available with the [facility] system but [facility] as family has been upset with his [facility] the [facility] and [facility]. 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 He was currently admitted to the hospital on October 16, 2024 due to gradual worsening over the left elbow. The chronic wound was additionally noted to be draining purulent fluid and became red warm and swollen. CT of the elbow was completed which showed joint effusion with surrounding inflammatory changes suggestive of reactive versus septic arthritis. He was started on empiric antibiotics with piperacillin/tazobactam and vancomycin. His arm is currently in a compression splint per orthopedic recommendations. Cultures marked abscess culture and Gram stain taken in the emergency room are showing MSSA. I am uncertain if this is a joint aspirate or not that was taken or a culture of the pus that was obtained. Orthopedic service was consulted and patient underwent Left elbow joint aspiration today. Cell count has been canceled by the lab as specimen was sent in the wrong container. Body fluid culture is currently pending.Gram stain is yet to be performed. Blood culture from admission is thus far negative. Review of Systems General: Reports: ROS unobtainable due to medical condition (dementia) Medications/Allergies Home Medications ?Medication ?Instructions ?Recorded ?Confirmed ?Last Taken ?Type aspirin 81 mg tablet,delayed 81 mg PO BEDTIME 10/16/24 10/16/24 10/15/24 20:00 History release (Cinthia Low Dose Aspirin) cholecalciferol (vitamin D3) 125 125 mcg PO BEDTIME 10/16/24 10/16/24 10/15/24 20:00 History mcg (5,000 unit) tablet (Vitamin D3) Allergies Allergy/AdvReac Type Severity Reaction Status Date / Time No Known Allergies Allergy Verified 10/16/24 13:38 Current Medications Generic Name Dose Route Start Last Admin Trade Name Freq PRN Reason Stop Dose Admin Enoxaparin Sodium 40 mg 10/16/24 18:15 10/17/24 17:08 Enoxaparin 40 Mg/0.4 Ml Syringe SUBCUT 40 mg Q24H LILY Administration Pantoprazole Sodium 40 mg 10/17/24 09:00 10/18/24 09:[address] 40 Mg Tablet PO 40 mg DAILY LILY Administration PFSH Acute PFSH: Medical History CKD (chronic kidney disease) Chronic wound of extremity Dementia MDD (major depressive disorder) CAD (coronary artery disease) Fcvnu-Yjbeilmdt-Dlxvn syndrome Chronic idiopathic thrombocytopenia Essential hypertension Hermitage cell carcinoma Vitals/I&O/Wt Last Vital Signs Temp 98.5 F 10/18/24 16:00 Pulse 53 L 10/18/24 16:00 Resp 16 10/18/24 16:00 BP 126/63 10/18/24 16:00 Pulse Ox 96 10/18/24 16:00 O2 Del Method Room Air 10/18/24 16:00 O2 Flow Rate 2 10/17/24 20:00 10/18/24 10/18/24 10/18/24 06:59 14:59 22:59 Intake Total 300 / 1650 480 / 480 50 / 530 Balance 300 / 1000 480 / 480 50 / 530 Weight last 48 hrs Weight 78.925 kg Weight 76.884 kg Weight 77.383 kg Physical Exam Narrative: General: No acute distress, currently uncomfortable, fidgeting in bed, asking to be repositioned, unable to provide any historical elements except that his wound has been longstanding. Notes that he is somewhere in [place] and that he was brought by his family. HEENT: PERRLA, pupils bilaterally equal and reactive, pallors not present Chest: Normal vesicular breath sounds, no added sounds, equal good air entry bilaterally CVS: S1-S2 regular, no murmurs, no tachycardia, no gallops, no rubs Abdomen: Soft, nontender, no organomegaly, bowel sounds present Neuro: No focal deficits, no facial deformity, AO x2, power 5/5 in all limbs EXT : left arm currently wrapped with sling in place Data 10/18/24 05:30 10/18/24 09:43 Micro: Microbiology 10/16/24 14:04 Gram Stain - Final Elbow - Left Abscess Culture - Final Staphylococcus aureus 10/16/24 14:44 Blood Culture - Preliminary Blood NEGATIVE TO DATE 10/16/24 14:28 Blood Culture - Preliminary Blood NEGATIVE TO DATE NAME: Zeke Covington LOC: [facility] #: [id number] AGE/SX: 84/M ROOM: 279 RE10/16/[address]: Kain Noguera MD : 1940 BED: 2 DIS: FAX #: STATUS: ADM IN TLOC: Spec #: [id number] Fransico: 10/16/24-1403 Status: COMP Req #: [id number] Recd: 10/16/24-[address]: Teresa Stein Src: Elbow SpDesc: Left Ordered: Absces Cult&GS Procedure Result Verified Site Gram Stain Final 10/16/24-1548 Result FEW WHITE BLOOD CELLS NO ORGANISMS SEEN Abscess Culture Final 10/18/24-1101 Organism 1 Staphylococcus aureus Growth MODERATE DAY 2 CRITICAL RESULT YES/NO: YES CRITICAL CALLED BY: RT TO AND READ BACK BY: DR RAMOS DATE: 10/18/24 TIME: 1100 S aureus M.I.C. RX --------- ------ * Ciprofloxacin <=1 S * Clindamycin <=0.5 R * Erythromycin >4 R * Gentamicin <=4 S * Levofloxacin <=1 S * Linezolid 2 S * Moxifloxacin <=0.5 S * Oxacillin 0.5 S * Penicillin 8 R * Rifampin <=1 S * Tetracycline <=4 S * Trimethoprim/Sulfamethoxazole <=0.5/9.5 S Vancomycin 1 S Daptomycin <=0.5 S NAME: Zeke Covington LOC: [facility] U #: [id number] AGE/SX: 84/M ROOM: 279 RE10/16/[address]: Kain Noguera MD : 1940 BED: 2 DIS: FAX #: STATUS: ADM IN TLOC: Spec #: [id number] Fransico: 10/16/24-1427 Status: RES Req #: [id number] Recd: 10/16/24-[address]: Teresa Stein Src: Blood SpDesc: Ordered: Bcult Procedure Result Verified Site Blood Culture Preliminary 10/17/24-143 NEGATIVE TO DATE Blood Culture Preliminary (changed) 10/16/24-1440 SPECIMEN COLLECTED Other data: Radiology Impressions Elbow CT 10/16/24 14:14 IMPRESSION: 1. Elbow joint effusion with surrounding inflammatory changes suggestive of reactive versus septic arthritis. 2. No abscess formation. No bony erosions. 3. Skin irregularity at the lateral aspect of the elbow joint. Elbow X-Ray 10/17/24 18:42 IMPRESSION: 1. Degenerative changes involving the elbow. 2. No acute fracture detected. 3. Tiny 4 mm calcified loose body, also seen on the prior CT. 4. Limited evaluation of joint effusion due to obliquity on both views and overlying splint material. Laboratory Results WBC 3.90 10^3/uL (3.29-11.43) 10/18/24 05:30 Corrected WBC Cancelled 10/17/24 16:20 RBC 2.92 10^6/uL (3.85-5.65) L 10/18/24 05:30 Hgb 9.20 g/dL (11.27-16.99) L 10/18/24 05:30 Hct 28.4 % (37-53) L 10/18/24 05:30 MCV 97.3 fl (82-101) 10/18/24 05:30 MCH 31.5 pg (27-33) 10/18/24 05:30 MCHC 32.4 g/dL (30-55) 10/18/24 05:30 RDW 12.0 % (12.1-15.1) L 10/18/24 05:30 Plt Count 102 10^3/cmm (157-399) L 10/18/24 05:30 MPV 10.6 fL (7.4-10.4) H 10/18/24 05:30 Gran % Cancelled 10/17/24 16:20 Neut % (Auto) 50.1 % 10/18/24 05:30 Lymph % (Auto) 37.2 % 10/18/24 05:30 Summers % (Auto) 10.8 % 10/18/24 05:30 Eos % (Auto) 0.8 % 10/18/24 05:30 Baso % (Auto) 0.3 % 10/18/24 05:30 Neut # (Auto) 1.96 10^3/uL (1.8-7.7) 10/18/24 05:30 Lymph # (Auto) 1.5 10^3/uL (0.8-4.8) 10/18/24 05:30 Summers # (Auto) 0.4 10^3/uL (0.2-0.9) 10/18/24 05:30 Eos # (Auto) 0.0 10^3/uL (0.0-0.8) 10/18/24 05:30 Baso # (Auto) 0.0 10^3/uL (0.0-0.1) 10/18/24 05:30 Absolute Gran (auto) Cancelled 10/17/24 16:20 Nucleated RBC % (auto) 0 % 10/18/24 05:30 Nucleated RBCs # 0.0 /100WBC 10/18/24 05:30 Differential Comment Yes 10/18/24 08:35 ESR 23 mm/hr (0-10) H 10/16/24 14:28 Sodium 141 mmol/L (136-145) 10/18/24 09:43 Potassium 3.8 mmol/L (3.5-5.1) 10/18/24 09:43 Chloride 108 mmol/L (98-107) H 10/18/24 09:43 Carbon Dioxide 24 mmol/L (22-29) 10/18/24 09:43 Anion Gap 12.8 (5-19) 10/18/24 09:43 BUN 21 mg/dL (8-23) 10/18/24 09:43 Creatinine 1.1 mg/dL (0.7-1.2) 10/18/24 09:43 GFR Calculation Not Reportable 10/18/24 09:43 Glucose 136 mg/dL (65-115) H 10/18/24 09:43 Estimat Average Glucose 100 10/16/24 14:28 Hemoglobin A1c 5.1 % (4.0-6.0) 10/16/24 14:28 Calculated Osmolality 297 mOsm/kg (285-295) H 10/18/24 09:43 Lactic Acid 1.7 mmol/L (0.5-2.2) 10/16/24 14:28 Calcium 8.2 mg/dL (8.5-10.5) L 10/18/24 09:43 Magnesium 1.3 mg/dL (1.7-2.3) L 10/18/24 05:30 Iron 31 ug/dL (59-158) L 10/16/24 14:28 TIBC 163 mcg/dl 10/16/24 14:28 % Saturation 19.0 % (20-50) L 10/16/24 14:28 Unsat Iron Binding 132 ug/dL (112-347) 10/16/24 14:28 Total Bilirubin 0.8 mg/dL (0.15-1.2) 10/18/24 09:43 AST 25 U/L (0-40) 10/18/24 09:43 ALT 27 U/L (0-41) 10/18/24 09:43 Alkaline Phosphatase 214 U/L (40-130) H 10/18/24 09:43 Creatine Kinase 35 U/L (39-308) L 10/16/24 14:28 C-Reactive Protein 76.4 mg/L (0.0-4.9) H 10/18/24 05:30 Total Protein 5.2 g/dL (6.6-8.7) L D 10/18/24 09:43 Albumin 2.6 g/dL (3.5-5.2) L 10/18/24 09:43 Globulin 2.6 g/dL (1.3-4.6) 10/18/24 09:43 Triglycerides 82 mg/dL (0-150) 10/18/24 05:30 Cholesterol 93 mg/dL (0-200) 10/18/24 05:30 LDL Cholesterol, Calc 52 mg/dL (50-129) 10/18/24 05:30 Total VLDL Cholesterol 16 mg/dL (0-30) 10/18/24 05:30 HDL Cholesterol 25 mg/dL (60-100) L 10/18/24 05:30 Cholesterol/HDL Ratio 3.72 mg/dL (1.0-5.00) 10/18/24 05:30 Vitamin B12 334 pg/mL (232-1245) 10/16/24 14:28 Folate 6.7 ng/mL (4.5-32.2) 10/18/24 05:30 TSH 1.43 uIU/mL (0.27-4.20) 10/16/24 14:28 Fluid Color Red 10/18/24 08:35 Fluid Appearance Bloody 10/18/24 08:35 Fluid WBC TNP 10/18/24 08:35 Fluid RBC TNP 10/18/24 08:35 Fld Polynuclear WBCs # TNP 10/18/24 08:35 Fld Polynuclear WBCs % TNP 10/18/24 08:35 Fl Mononucl WBCs #(Auto) TNP 10/18/24 08:35 Fl Mononuclear % Auto TNP 10/18/24 08:35 Fluid Crystals Sent to path 10/18/24 08:35 Fld Crystal Laterality Left elbow 10/18/24 08:35 Nasal MRSA (PCR) Not detected (Negative) 10/17/24 13:27 Vancomycin Trough 14.6 ug/mL (10-15) 10/18/24 15:00 A&P Assessment and plan (1) Cellulitis of left elbow: (2) Septic arthritis: Plan 84-year-old male with a past medical history of left arm malignancy, status post chemoradiation, documents requested from prior admissions. Currently presenting to the emergency room with worsening of a chronically draining left elbow wound. Per history available from family it appears the open wound has been present at least for a year however more recently was noted to have a worsening. Cultures taken in the emergency room on October 16, 2024 (? Aspirate? Draining pus?) are with growth of MSSA. Blood cultures from admission are thus far negative to date. CT of the elbow showed signs compatible with cellulitis and possibly reactive changes versus septic arthritis of the left elbow. Patient was started on treatment with piperacillin/tazobactam and vancomycin on admission. Elbow aspirate was taken today by Dr. Carrasquillo for cell count and cultures. It appears lab has canceled the body fluid analysis as it was sent in the wrong container and this testing will be unable to be run at this time. Cultures taken and pending. Requested add-on of Gram stain to the cultures. Negative cultures may not be accurate since patient has been on broad-spectrum antibiotics since admission. With elevated CRP of 113, elbow CT raising concern for joint effusion raising suspicion for septic arthritis, we will presumptively treat this as a septic joint. Records requested from [facility] in [facility] to assess if patient has had any long-term IV antibiotic treatment in the past for this issue. Plan: Discontinue piperacillin/tazobactam and vancomycin Changed treatment to organism directed therapy for MSSA with cefazolin 2 g IV every 8 hours. Anticipated duration of antibiotics to be 4 to 6 weeks depending on clinical response. Will follow cultures from synovial aspirate taken today by orthopedics. Patient is anticipated to be discharged to SNF. While on the above antibiotics recommend to obtain weekly CBC, CMP and CRP to assess treatment response and monitor for any potential drug toxicity. Patient will need outpatient follow-up with infectious disease after discharge. I called patient's listed contact Benoit Donovan (grandson) to obtain infectious disease H&P, obtain historical details as is appropriate and give updates regarding patient's care. His family was quite agitated during the course of history taking, it appears the main frustration was around having to repeat historical elements and insistence that all information had been provided. They referred me to old records at the [facility] which I do not unfortunately have available at this time for review. While attempting to explain the next steps and antibiotic selection after synovial fluid aspiration, family became even further agitated stating that they had already discussed care with a male doctor earlier. I assume they are either referring to Dr. Asif or Dr. Carrasquillo. They stated that they are unable to understand my care plan, and feel like I'm providing conflicting information over what was provided by one of the doctors earlier . Family member indicates he does not like the way I'm talking to him as the [facility] talked to him in a similar tone. I am uncertain as to which part of the conversation was offensive to the family. Given the above, I do not feel that the family will be able to establish a mutually respectful and trustworthy relationship with me as an outpatient infectious provider and patient would be best served by being established with ID at a different hospital after discharge. I will remain available for any acute issues that come up during this admission course. Please call with any clinical or culture data updates. PDMP PDMP Reviewed: Not Reviewed Consult Attestations Medical Necessity Statement: per admitting Coding Level of Care Code Acute Code for [facility] Fwd Diagnoses Cellulitis of left elbow L03.114 Septic arthritis M00.9
[2024-10-18] MEDS: enoxaparin 40 mg/0.4 mL Syringe SUBCUT (17:29)
[2024-10-18] MEDS: ceFAZolin 2,000 mg SDV 2000 MG IVP (17:30)
[2024-10-19] MEDS: HYDROcodone-acetaminophen 5-325 mg Tablet 1 TAB PO (00:26)
[2024-10-19] MEDS: ceFAZolin 2,000 mg SDV 2000 MG IVP ×2 (00:27→09:11)
[2024-10-19 00:57] VITALS: BP 147/76; PULSE 69; RESP 16; TEMP 37.2; O2SAT 94
[2024-10-19 02:44] LABS: Basophils % 0.2 %; Eosinophils # 0.1 10^3/uL (0.0-0.8); Hematocrit 35.9 % (37-53); Lymphocytes # 1.6 10^3/uL (0.8-4.8); Lymphocytes % 32.6 %; Mean Corpuscular HGB Conc 33.1 g/dL (30-55); Mean Corpuscular Hemoglobin 31.9 pg (27-33); Mean Corpuscular Volume 96.2 fl (82-101); Mean Platelet Volume 10.2 fL (7.4-10.4); Monocytes # 0.5 10^3/uL (0.2-0.9); Monocytes % 9.3 %; Neutrophils # 2.73 10^3/uL (1.8-7.7); Neutrophils % 56.7 %; Nucleated Red Blood Cells % 0 %; Platelet Count 140 10^3/cmm (157-399); Red Blood Count 3.73 10^6/uL (3.85-5.65); Red Cell Distribution Width 11.9 % (12.1-15.1); White Blood Count 4.82 10^3/uL (3.29-11.43)
[2024-10-19 05:06] LABS: Alanine Aminotransferase 23 U/L (0-41); Albumin Level 2.7 g/dL (3.5-5.2); Alkaline Phosphatase 233 U/L (40-130); Aspartate Amino Transferase 23 U/L (0-40); Blood Urea Nitrogen 24 mg/dL (8-23); Calcium 8.3 mg/dL (8.5-10.5); Carbon Dioxide 24 mmol/L (22-29); Chloride 106 mmol/L (98-107); Glucose 106 mg/dL (65-115); Magnesium 1.9 mg/dL (1.7-2.3); Osmolality Calculated 292 mOsm/kg (285-295); Sodium 139 mmol/L (136-145); Total Bilirubin 0.6 mg/dL (0.15-1.2); Total Protein 5.7 g/dL (6.6-8.7)
[2024-10-19 05:37] LABS: Slide Review Slide Review Perform
[2024-10-19 06:00] VITALS: PULSE 52
[2024-10-19 06:42] VITALS: BP 140/74; PULSE 57; RESP 16; TEMP 36.9; O2SAT 94
[2024-10-19 08:00] VITALS: BP 148/78; PULSE 60; RESP 17; TEMP 36.4; O2SAT 95
[2024-10-19] MEDS: pantoprazole DR 40 mg Tablet PO (09:10)
[2024-10-19 11:23] VITALS: BP 138/83; PULSE 66; RESP 17; TEMP 36.4; O2SAT 96
--- NOTE | 2024-10-19 11:28 | XR_ITS ---
WS: [id number] Portable AP upright chest, 10/19/2024 Clinical Data: Post PICC insertion Comparison: None. Findings: The right PICC line appears to end in the superior vena cava at the level of the aortic arch. No pneumothorax is seen. XR/XR chest 1V portable [id number] Impression: Satisfactory placement of right PICC line.
--- NOTE | 2024-10-19 12:35 | P.DS_ITS ---
Discharge Providers Date of Admission: 10/16/24 16:58 Date of Discharge: October 19, 2024 Attending Provider at Admission: Avinash Asif MD Attending Provider at Discharge: Kain Noguera MD Consults: Orthopedics: Dr. Carrasquillo ID: Dr. Zimmer Diagnoses at Discharge Discharge Diagnosis (1) Cellulitis of left elbow: Status: Acute (2) Septic arthritis: Status: Acute Reason for Visit Reason for Visit: swelling in left arm/open wound Brief History: History as per HPI: 84yo M with Hx of Hamlet Cell carcinoma, chronic thrombocytopenia, CAD with hx of CABG (90?s), WPW Syndrome, MDD, HTN, HLD, CKD, and dementia presented to ED with chronic wound on LEFT elbow. Per family he recently moved to [place] 1 week ago. Prior to move he was living in [place], had 4 months ago and he was not doing well in a senior care. Family assumed care and brought him to [place]. He has no current physician locally. Pt has hx of multiple surgeries for bony lesion removals, radiation and chemotherapy for carcinoma. Last seen by oncology 4 months ago. Per grandson failed chemo, surgeries and radiation, desired to monitor. No f/u thereafter. Per patient and family the L elbow has progressively worsened over past 1 week. Daughter concerned as it has been draining purulent fluid, has also become red, warm and swollen. Grandson had dPOA. Daughter states he is only taking his dementia medicine and is unsure of what else he is supposed to be on. After discussion with grandson, he is also taking Vit D3 but has stopped taking ASA, statin, and unknown anti-depressant. When asked about blood pressure or rate stabilizing medication he denied knowing of any medication. Pt complaining of significant pain when moving elbow. CT elbow (10/16/24): ?joint effusion with surrounding inflammatory changes suggestive of reactive vs septic arthritis. No visible abscess formation or bony erosion. Skin irregularities at lateral aspect. Dr. Carrasquillo was consulted from the ED and stated he will see in AM and should be started on antibiotics. ? Hospital Course Hospital Course Patient was admitted to the hospital further evaluation and management of chronic wound of left elbow with concerns for septic arthritis. Orthopedics was consulted. He started on broad-spectrum antibiotics. While being on broad- spectrum antibiotics his cellulitis improved. He underwent joint aspiration on 10/18. Wound cultures are growing MSSA. Patient's antibiotics were de- escalated as per culture sensitivities. Safe discharge plan were discussed in detail with the patient and his DPOA/grandson requested patient to be transition to SNF for IV antibiotics. PICC line was placed on 10/19. He has been discharged in hemodynamically stable condition on IV cefazolin every 8 hours for next 6 weeks with advised to follow-up with orthopedic team as an outpatient in 2 weeks, wound care. He will need to have weekly labs to be followed up by the senior care PCP. Physical Exam Narrative: General: AOx3, no acute distress, well developed, well nourished, appears stated age psych: appropriate mood and affect. good judgment and insight. Eyes: conjunctiva clear w/o exudate or hemorrhage. non-icteric, EOM intact, PERRLA. no signs of nystagmus Nose: nasal mucosa pink, septum midline Oropharynx: good dentition, Neck: FROM, no lymphadenopathy, no tracheal deviation, non tender, thyroid gland normal w/o mass. supple Chest: atraumatic, symmetrical CVD: RRR, normal S1 and S2, no M/R/G. 2+ pulse x 4 extremities, no JVD, no carotid bruit. Lungs: clear lung sounds in all doe, no rhonchi, wheezing, rales. Abdomen: NT, ND, soft, NABS. No hepatosplenomegaly, no mass. umbilicus midline w/o herniation : not done on todays examination Rectal: not done on todays examination Spine: no visible deformities, FROM, 5/5 strength. no paraspinal ttp.non tender bony features. no discomfort with ROM Extremities: FROM and 5/5 strength in RUE and BLE. no visible joint abnormalities on active and passive ROM. -L shoulder: limited ROM 2/2 shoulder pain. no ttp -L hand: limited ROM 2/2 pain in L elbow. able to slowly move fingers in pain. full sensation -L shoulder: ALICE wrap just placed by ortho. refer to ortho and ED note for description. Neuro: CNII-XII grossly intact, no sensory abnormalities. Skin:? per ED and ortho note as wound is wrapped Discharge Data Studies Completed and Pending Completed Studies During Hospitalization Category Date Time Status CT elbow LT w con [id number] Stat Cat Scan 10/16/24 14:14 Completed CXRP [XR chest 1V portable [id number]] Routine Exams 10/19/24 11:28 Completed XR elbow LT 2V [id number] Routine Exams 10/17/24 18:42 Completed Pending at discharge Category Date Time Status Anaerobic Culture Routine Lab 10/18/24 08:35 Received Blood Culture Stat Lab 10/16/24 14:44 Results Body Fluid Culture Routine Lab 10/18/24 08:35 Received Gram Stain Routine Lab 10/18/24 17:36 Uncollected MAG [Magnesium] AM LABS Lab 10/20/24 04:00 Ordered SARS Covid-2 Antigen Routine Lab 10/19/24 12:32 Uncollected Radiology Impressions Elbow CT 10/16/24 14:14 IMPRESSION: 1. Elbow joint effusion with surrounding inflammatory changes suggestive of reactive versus septic arthritis. 2. No abscess formation. No bony erosions. 3. Skin irregularity at the lateral aspect of the elbow joint. Elbow X-Ray 10/17/24 18:42 IMPRESSION: 1. Degenerative changes involving the elbow. 2. No acute fracture detected. 3. Tiny 4 mm calcified loose body, also seen on the prior CT. 4. Limited evaluation of joint effusion due to obliquity on both views and overlying splint material. Chest X-Ray 10/19/24 11:28 Impression: Satisfactory placement of right PICC line. Microbiology 10/16/24 14:04 Elbow - Left Gram Stain - Final 10/16/24 14:04 Elbow - Left Abscess Culture - Final Staphylococcus aureus 10/16/24 14:44 Blood Blood Culture - Preliminary NEGATIVE TO DATE 10/16/24 14:28 Blood Blood Culture - Preliminary NEGATIVE TO DATE Laboratory Results WBC 4.82 10^3/uL (3.29-11.43) 10/19/24 02:30 Corrected WBC Cancelled 10/17/24 16:20 RBC 3.73 10^6/uL (3.85-5.65) L 10/19/24 02:30 Hgb 11.90 g/dL (11.27-16.99) 10/19/24 02:30 Hct 35.9 % (37-53) L 10/19/24 02:30 MCV 96.2 fl (82-101) 10/19/24 02:30 MCH 31.9 pg (27-33) 10/19/24 02:30 MCHC 33.1 g/dL (30-55) 10/19/24 02:30 RDW 11.9 % (12.1-15.1) L 10/19/24 02:30 Plt Count 140 10^3/cmm (157-399) L D 10/19/24 02:30 MPV 10.2 fL (7.4-10.4) 10/19/24 02:30 Gran % Cancelled 10/17/24 16:20 Neut % (Auto) 56.7 % 10/19/24 02:30 Lymph % (Auto) 32.6 % 10/19/24 02:30 Glasscock % (Auto) 9.3 % 10/19/24 02:30 Eos % (Auto) 1.0 % 10/19/24 02:30 Baso % (Auto) 0.2 % 10/19/24 02:30 Neut # (Auto) 2.73 10^3/uL (1.8-7.7) 10/19/24 02:30 Lymph # (Auto) 1.6 10^3/uL (0.8-4.8) 10/19/24 02:30 Glasscock # (Auto) 0.5 10^3/uL (0.2-0.9) 10/19/24 02:30 Eos # (Auto) 0.1 10^3/uL (0.0-0.8) 10/19/24 02:30 Baso # (Auto) 0.0 10^3/uL (0.0-0.1) 10/19/24 02:30 Absolute Gran (auto) Cancelled 10/17/24 16:20 Nucleated RBC % (auto) 0 % 10/19/24 02:30 Nucleated RBCs # 0.0 /100WBC 10/19/24 02:30 Differential Comment Yes 10/18/24 08:35 ESR 23 mm/hr (0-10) H 10/16/24 14:28 Sodium 139 mmol/L (136-145) 10/19/24 02:30 Potassium 4.0 mmol/L (3.5-5.1) 10/19/24 02:30 Chloride 106 mmol/L (98-107) 10/19/24 02:30 Carbon Dioxide 24 mmol/L (22-29) 10/19/24 02:30 Anion Gap 13.0 (5-19) 10/19/24 02:30 BUN 24 mg/dL (8-23) H 10/19/24 02:30 Creatinine 1.1 mg/dL (0.7-1.2) 10/19/24 02:30 GFR Calculation Not Reportable 10/19/24 02:30 Glucose 106 mg/dL (65-115) 10/19/24 02:30 Estimat Average Glucose 100 10/16/24 14:28 Hemoglobin A1c 5.1 % (4.0-6.0) 10/16/24 14:28 Calculated Osmolality 292 mOsm/kg (285-295) 10/19/24 02:30 Lactic Acid 1.7 mmol/L (0.5-2.2) 10/16/24 14:28 Calcium 8.3 mg/dL (8.5-10.5) L 10/19/24 02:30 Magnesium 1.9 mg/dL (1.7-2.3) 10/19/24 02: Iron 31 ug/dL (59-158) L 10/16/24 14:28 TIBC 163 mcg/dl 10/16/24 14:28 % Saturation 19.0 % (20-50) L 10/16/24 14:28 Unsat Iron Binding 132 ug/dL (112-347) 10/16/24 14:28 Total Bilirubin 0.6 mg/dL (0.15-1.2) 10/19/24 02:30 AST 23 U/L (0-40) 10/19/24 02:30 ALT 23 U/L (0-41) 10/19/24 02:30 Alkaline Phosphatase 233 U/L (40-130) H 10/19/24 02:30 Creatine Kinase 35 U/L (39-308) L 10/16/24 14:28 C-Reactive Protein 76.4 mg/L (0.0-4.9) H 10/18/24 05:30 Total Protein 5.7 g/dL (6.6-8.7) L 10/19/24 02:30 Albumin 2.7 g/dL (3.5-5.2) L 10/19/24 02:30 Globulin 3.0 g/dL (1.3-4.6) 10/19/24 02:30 Triglycerides 82 mg/dL (0-150) 10/18/24 05:30 Cholesterol 93 mg/dL (0-200) 10/18/24 05:30 LDL Cholesterol, Calc 52 mg/dL (50-129) 10/18/24 05:30 Total VLDL Cholesterol 16 mg/dL (0-30) 10/18/24 05:30 HDL Cholesterol 25 mg/dL (60-100) L 10/18/24 05:30 Cholesterol/HDL Ratio 3.72 mg/dL (1.0-5.00) 10/18/24 05:30 Vitamin B12 334 pg/mL (232-1245) 10/16/24 14:28 Folate 6.7 ng/mL (4.5-32.2) 10/18/24 05: TSH 1.43 uIU/mL (0.27-4.20) 10/16/24 14:28 Fluid Color Red 10/18/24 08:35 Fluid Appearance Bloody 10/18/24 08:35 Fluid WBC TNP 10/18/24 08:35 Fluid RBC TNP 10/18/24 08:35 Fld Polynuclear WBCs # TNP 10/18/24 08:35 Fld Polynuclear WBCs % TNP 10/18/24 08:35 Fl Mononucl WBCs #(Auto) TNP 10/18/24 08:35 Fl Mononuclear % Auto TNP 10/18/24 08:35 Fluid Crystals Sent to path 10/18/24 08:35 Fld Crystal Laterality Left elbow 10/18/24 08:35 Nasal MRSA (PCR) Not detected (Negative) 10/17/24 13:27 Vancomycin Trough 14.6 ug/mL (10-15) 10/18/24 15:00 Vitals Last Vital Signs Temp 97.6 F 10/19/24 11:23 Pulse 66 10/19/24 11:23 Resp 17 10/19/24 11:23 BP 138/83 10/19/24 11:23 Pulse Ox 96 10/19/24 11:23 O2 Del Method Room Air 10/19/24 11:23 O2 Flow Rate 2 10/18/24 21:20 Discharge Plan Discharge Patient Disposition: Home Condition: Stable Prescriptions: No Action aspirin [Cinthia Low Dose Aspirin] 81 mg Tablet,Delayed Release (Dr/Ec) 81 mg PO BEDTIME cholecalciferol (vitamin D3) [Vitamin D3] 125 mcg (5,000 unit) Tablet 125 mcg PO BEDTIME Discharge Orders: Discharge Order (Routine); Ordered 10/19/24 Ordered By: Kain Noguera Referrals: Barrie Carrasquillo DO [Physician, Orthopedics] - 2 weeks [place] [facility] [Occupational Therapist, Medical] - 2 weeks Referral Note: We have notified your physician's clinic of the need for a follow-up appointment to be scheduled. If you have not heard from them within the next 2 business days, please call them directly. Discharge Diet: Cardiac Discharge Activity: Resume usual activity and Increase activity as tolerated Patient Instructions: Opioid Safety Activity Restrictions/Additional Instructions: Continue taking IV cefazolin every 8 hours for next 6 weeks through PICC line. PICC line should be removed after completion of IV antibiotic course. Should have weekly labs while patient is on antibiotics which are to be followed up by senior care primary care provider. Follow-up with orthopedic team as recommended. Continue wound care as per orthopedic team. Discharge Attestations Time Spent in Discharge Care*: greater than 30 min Specific Discharge Activities: educating patient, educating and/or supporting family/caregiver, discussing with pcp/other providers, discussing with case monitor/social workers/dc planners, documenting/other paperwork and evaluating patient/reviewing data Status at Discharge: Cognitive status at discharge: mildly impaired cognition , Behavioral status at discharge: cooperative , Functional status at discharge: independent ambulation , Overall status at discharge: patient is back to baseline Quality Metrics Clinical Quality Measures [ No reported AMI, CVA or VTE this stay] Coding Level of Care Code 30830 Total time (in minutes) for Discharge: 70 Diagnoses Cellulitis of left elbow L03.114 Septic arthritis M00.9
--- NOTE | 2024-10-19 12:37 | PICC.NOTE ---
Single lumen PICC placed to right brachial vein. Referred to vascular access nurse for PICC placement due to left elbow infection and need for IV antibiotics x 4-6 weeks. Risks and benefits discussed and informed consent obtained via phone from Benoit cuenca DPOA. Right arm assessed with right brachial vein measuring 5.0 mm, straight, and apparent best choice for placement. Using sterile technique and MST, right brachial vein accessed x 1 stick. Mid-arm circumference measured 10 cm from right AC 28 cm. Trimmed cath 36 cm with 0 cm external length noted. CXR shows tip in SVC, in satisfactory position for use per radiologist. Line secured with stat-lock. Insertion site covered with Biopatch and TSM. Report given to bedside nurse, FRANCO Escobar.
--- NOTE | 2024-10-19 13:25 | PM.PN ---
Subjective Subjective: Patient seen and examined today. Patient continues to have on his pain and clinically. Cultures are pending, unfortunately fluid cell study this clotted and was unable to be sent for specimen. Patient continues to be on antibiotics. Planning on likely discharge today. Vitals/I&O/Wt Last Vital Signs Temp 97.6 F 10/19/24 11:23 Pulse 66 10/19/24 11:23 Resp 17 10/19/24 11:23 BP 138/83 10/19/24 11:23 Pulse Ox 96 10/19/24 11:23 O2 Del Method Room Air 10/19/24 11:23 O2 Flow Rate 2 10/18/24 21:20 10/18/24 10/19/24 10/19/24 22:59 06:59 14:59 Intake Total 540 / 1020 120 / 120 Balance 540 / 1020 120 / 120 Weight last 48 hrs Weight 175 lb 3.2 oz Weight 174 lb Physical Exam Narrative: Examination today demonstrates examination of the left upper extremity demonstrates his upper extremities propped on pillows and an dressing on in place, this subsequently taken down completely patient still has saturation over his chronic wound mostly of edematous drainage. Continued resolution of his swelling as well as improvement in his hand and wrist motion with decreasing pain. His cellulitis has improved considerably with now no cellulitis over the anconeus soft spot for joint aspiration. He is actively moving his fingers now with minimal pain or discomfort. Fingertips warm well-perfused brisk capillary refill less than 2 seconds sensation intact light touch distally. Able to tolerate passive range of motion of the fingers wrist. New dressing applied Data 10/19/24 02:30 10/19/24 02:30 Micro: Microbiology 10/16/24 14:04 Gram Stain - Final Elbow - Left Abscess Culture - Final Staphylococcus aureus A&P Assessment and plan (1) Cellulitis of left elbow: (2) Chronic wound of extremity: (3) [place] cell carcinoma: (4) Dementia: Plan Hospitalist as primary Orthopedics consult Labs reviewed Continued clinical improvement Maintain dressing IV antibiotics per primary Elevation and compressive Tubigrip for swelling No plan for acute orthopedic surgical intervention at this time Cultures pending from joint aspiration Patient at this point in time is stable from orthopedic standpoint orthopedic surgery team will sign off patient at this time and follow peripherally if there is any question to patient patient's care for free to contact orthopedics on-call. Patient is planning on being discharged on IV antibiotics and currently has a PICC line in place. He will follow-up in the orthopedic office in 2 weeks appropriate discharge instructions given. Would recommend twice daily dry dressing changes over his chronic draining wound as he does have saturation secondary to his edema to the left upper extremity. Patient understands and agrees with current plan. All questions answered. PDMP PDMP Reviewed: Not Reviewed Attestations Medical Necessity Statement*: Requested hospitalization for management of chronic wound of the left elbow with concerns of septic arthritis, cultures pending Coding Level of Care Code Acute Code for [facility] Fwd Diagnoses Cellulitis of left elbow L03.114 Chronic wound of extremity [place] cell carcinoma C4A.9 Dementia F03.90
[2024-10-19 13:44] LABS: SARS Covid-2 Antigen Negative (Negative)
[2024-10-19 14:05] VITALS: BP 138/83; PULSE 66; RESP 17; TEMP 36.4; O2SAT 93
--- NOTE | 2024-10-19 15:15 | PC.OT ---
OT TREATMENT HELD TODAY DUE TO SCHEDULED PATIENT D/C
--- NOTE | 2024-10-19 15:25 | PC.NURSE ---
Called report to Noemy Mccormick LPN at [facility] [id number].
== END 2024-10-19 14:05 | disposition skilled nursing facility (03) | DRG 549 ==
LOC: ER 17:26 → MEDSURG 18:16
PROVIDERS: Student in an Organized Health Care Education/Training Program; Admitting Provider Family Medicine; Emergency Provider Physician Assistant; Visit Provider Student in an Organized Health Care Education/Training Program
DX: M00.9 Pyogenic arthritis, unspecified (principal); L03.114 Cellulitis of left upper limb; I45.6 Pre-excitation syndrome; D69.6 Thrombocytopenia, unspecified; I25.10 Atherosclerotic heart disease of native coronary artery without angina pectoris; F03.90 Unspecified dementia, unspecified severity, without behavioral disturbance, psychotic disturbance, mood disturbance, and anxiety; N18.9 Chronic kidney disease, unspecified; F32.9 Major depressive disorder, single episode, unspecified; I12.9 Hypertensive chronic kidney disease with stage 1 through stage 4 chronic kidney disease, or unspecified chronic kidney disease; Z86.73 Personal history of transient ischemic attack (TIA), and cerebral infarction without residual deficits; Z79.82 Long term (current) use of aspirin; Z79.899 Other long term (current) drug therapy; Z95.1 Presence of aortocoronary bypass graft; Z85.821 Personal history of Merkel cell carcinoma; B95.61 Methicillin susceptible Staphylococcus aureus infection as the cause of diseases classified elsewhere
CPT/HCPCS: 36415; 36573; 71045; 73070; 73201; 80053; 80061; 80202; 80503; 82550; 82607; 82746; 83036; 83540; 83550; 83605; 83735; 84443; 85025; 85651; 86140; 87040; 87070; 87075; 87077; 87186; 87205; 87426; 89050; 96365; 96367; 96372; 96375; 97116; 97161; 97167; 97530; 97535; 99285; J0690; J1650; J1885; J2270; J2405; J2543; J3010; J3370; J7030; J7050; J9999

== ENCOUNTER → 2024-11-02 14:34 | Outpatient (BNVA) | payer OTHER, SELFPAY | PROVIDERS: Visit Provider Physician Assistant | DX: L03.114 Cellulitis of left upper limb (principal); M25.522 Pain in left elbow | CPT/HCPCS: 73080; 99213 ==

== ENCOUNTER → 2024-11-10 11:01 | Outpatient (BNVA) | payer OTHER, SELFPAY | PROVIDERS: Visit Provider Podiatrist Foot & Ankle Surgery | DX: I73.9 Peripheral vascular disease, unspecified (principal); L60.3 Nail dystrophy; N18.9 Chronic kidney disease, unspecified | CPT/HCPCS: 11721; 99203 ==

== ENCOUNTER 2024-11-11 08:41 | Outpatient (CLI) | payer OTHER, SELFPAY ==
--- NOTE | 2024-11-11 09:00 | CT_ITS ---
WS: [id number] CT LEFT FOREARM, NONCONTRAST HISTORY: arm pain Technique: All CT scans at [facility] use at least one of these dose optimization techniques: automated exposure control; mA and/or kV adjustment per patient size (includes targeted exams where dose is matched to clinical indication); or iterative reconstruction. DLP: 196.86 mGy.cm COMPARISON: None available. There is mild motion artifact. Patient was unable to remain still for this exam. Normal alignment at the elbow joint. There is loss of the normal cortex with small osseous fragments and bone ulceration centered involving the lateral epicondyle. There is soft tissue edema surrounding the elbow at this location. There are a few tiny osseous densities along the anterior elbow joint. Radial head is intact. High density foci posterior to the olecranon within the bursa. No additional destructive bone lesions. Advanced degenerative changes noted at the radiocarpal joint. There is bone upon bone at the radiocarpal joint with evidence for chondrocalcinosis. Mild widening of the scapholunate interval. Distal radial osteophytes. Suspect there was probably a prior radial fracture. CT/CT forearm LT wo con* [id number] IMPRESSION: 1. Osseous erosions with loss of the normal cortex involving the lateral epico ndyle with adjacent soft tissue inflammation and a few small bony spicules. Ost eomyelitis is not excluded. Additional inflammatory process such as gout may ap pear similar. 2. Distended olecranon bursa with multiple calcific densities. These may be to phi related to gout or rheumatoid or chronic olecranon bursitis. 3. Joint effusion at the elbow. 4. Small spicule of bone or calcification in the anterior joint. 5. Deformity of the distal radius, likely from an old fracture. 6. Severe narrowing of the radiocarpal joint with widening of the scapholunate interval.
== END 2024-11-11 08:42 | disposition home or self-care (01) ==
LOC: RAD 08:43
PROVIDERS: Visit Provider Physician Assistant
DX: M70.22 Olecranon bursitis, left elbow (principal); M85.832 Other specified disorders of bone density and structure, left forearm; R93.6 Abnormal findings on diagnostic imaging of limbs; M25.422 Effusion, left elbow; M25.832 Other specified joint disorders, left wrist; M25.732 Osteophyte, left wrist
CPT/HCPCS: 73200

== ENCOUNTER 2024-11-16 15:09 | Oncology outpatient (recurring) (ONCR) | payer OTHER, SELFPAY | END 2024-11-19 23:59 | disposition home or self-care (01) | PROVIDERS: Visit Provider Thoracic Surgery (Cardiothoracic Vascular Surgery) | DX: L03.114 Cellulitis of left upper limb (principal); M25.522 Pain in left elbow; L98.499 Non-pressure chronic ulcer of skin of other sites with unspecified severity | CPT/HCPCS: 11042; 99213; A6212 ==

== ENCOUNTER → 2024-12-01 13:47 | Outpatient (BNVA) | payer MEDICARE, SELFPAY | PROVIDERS: Visit Provider Thoracic Surgery (Cardiothoracic Vascular Surgery) | DX: I96 Gangrene, not elsewhere classified (principal); L98.492 Non-pressure chronic ulcer of skin of other sites with fat layer exposed | CPT/HCPCS: 11042 ==

== ENCOUNTER 2024-12-02 13:30 | Emergency (ER) | payer OTHER, MEDICARE, SELFPAY ==
[2024-12-02 13:37] VITALS: BP 124/73; PULSE 66; RESP 16; TEMP 36.9; O2SAT 98; BMI 25.8
--- NOTE | 2024-12-02 13:52 | W.ED.GENADLT ---
HPI - General Adult General: Chief complaint: General Medical Stated complaint: port removal Time Seen by Provider: 12/02/24 13:44 Source: patient Mode of arrival: ambulatory Limitations: no limitations History of Present Illness: Patient is an 84-year-old male who presents to ED today requesting that his PICC line to his right upper extremity be removed. 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 Patient was admitted to the hospital near the end of September due to this with Dr. Carrasquillo. He has been following up with him as well as our cancer center. He was seen by his primary care provider today who cleared him to have the PICC line removed but states she could not remove it because she was not the one who placed it . Family of the patient has contacted orthopedics as well as oncology both of which state they will not remove it either. She is agitated and wants it removed today. Relieving factors: none Exacerbating factors: none Associated symptoms: Reports no associated symptoms; Deny chest pain, dyspnea or headache(s) Treatments prior to arrival: none Related Data Home Medications ?Medication ?Instructions ?Recorded ?Confirmed aspirin 81 mg tablet,delayed 81 mg PO BEDTIME 10/16/24 11/24/24 release (Cinthia Low Dose Aspirin) cholecalciferol (vitamin D3) 125 125 mcg PO BEDTIME 10/16/24 11/24/24 mcg (5,000 unit) tablet (Vitamin D3) cefazolin 2 gram solution for 1 g IM Q12H 11/24/24 11/24/24 injection Allergies Allergy/AdvReac Type Severity Reaction Status Date / Time No Known Allergies Allergy Verified 11/24/24 10:36 Review of Systems Const: Denies: fever(s) Card: Denies: chest pain Resp: Denies: dyspnea GI: Denies: abdominal pain Musc: Reports: other (family states wound on elbow is healing well-has had routine f/u with ortho) Neuro: Denies: headache(s) or dizziness PFS ED PFSH: Medical History CKD (chronic kidney disease) Chronic wound of extremity Dementia MDD (major depressive disorder) CAD (coronary artery disease) Zbsqo-Fudmatexo-Dlkya syndrome Chronic idiopathic thrombocytopenia Essential hypertension [place] cell carcinoma Social History Smoking and tobacco/nicotine status: never used tobacco/nicotine Physical Exam Const: COMMON NORMALS: no acute distress, average body habitus, no limitations, healthy appearing, alert and well nourished GENERAL APPEARANCE: cooperative OTHER: at mental baseline per family Resp: COMMON NORMALS: normal respiratory effort and clear to auscultation bilaterally AUSCULTATION: clear to auscultation bilaterally Cardio: COMMON NORMALS: regular rate and regular rhythm RATE: regular rate RHYTHM: regular rhythm Extremity: NARRATIVE EXTREMITY EXAM: PICC site to R UE appears clean/dressed GENERAL: Yes normal exam except as noted OTHER: L elbow wound has healed well; family states it is significantly better and ortho is continuing to follow Neuro: COMMON NORMALS: moves all extremities, no focal motor deficits and no sensory deficits noted SENSORIUM/ORIENTATION: Yes alert Course Vital Signs: Vital signs: Vital Signs Temperature 98.4 F 12/02/24 13:37 Pulse Rate 66 12/02/24 13:37 Respiratory Rate 16 12/02/24 13:37 Blood Pressure 124/73 12/02/24 13:37 Pulse Oximetry 98 12/02/24 13:37 Oxygen Delivery Me thod Room Air 12/02/24 13:37 MDM - General Adult Medical Decision Making Patient is an 84-year-old male here with family for request that his PICC line be removed. Family states he has finished his 6 weeks of IV antibiotics and has no further scheduled medications ordered. Family states they have been cleared by primary care but they were not willing to remove. We did contact the infusion center. I spoke to [place] staff/PICC steam boiler fireman. Dr. Carrasquillo is out on paternity leave and his nurses already left for the day. Ultimately indication for PICC line removal is at patient request thus this was provided today. This was removed by RN with no complications. Medical Records I reviewed the patient's medical records. No radiology studies performed this visit Discharge Plan Discharge Patient Disposition: Home Clinical Impression: PICC (peripherally inserted central catheter) removal Condition: Stable Prescriptions: No Action cefazolin 2 gram recon soln 1 g IM Q12H aspirin [Cinthia Low Dose Aspirin] 81 mg Tablet,Delayed Release (Dr/Ec) 81 mg PO BEDTIME cholecalciferol (vitamin D3) [Vitamin D3] 125 mcg (5,000 unit) Tablet 125 mcg PO BEDTIME Discharge Orders: Discharge ED (Routine); Ordered 12/02/24 Ordered By: Teresa Stein Print Language: Wolof Coding Level of Care Code ED Habitat Conservation Planner for [place]
--- NOTE | 2024-12-02 14:59 | PC.NURSE ---
PICC LINE REMOVED BY THIS NURSE AND FRANCO MEDELLIN. PICC LINE CATHETER INTACT UPON REMOVAL. PRESSURE DRESSING APPLIED. PROVIDER NOTIFIED.
== END 2024-12-02 15:08 | disposition home or self-care (01) ==
PROVIDERS: Emergency Provider Physician Assistant
DX: Z45.2 Encounter for adjustment and management of vascular access device (principal); N18.9 Chronic kidney disease, unspecified; I25.10 Atherosclerotic heart disease of native coronary artery without angina pectoris; I12.9 Hypertensive chronic kidney disease with stage 1 through stage 4 chronic kidney disease, or unspecified chronic kidney disease; Z85.821 Personal history of Merkel cell carcinoma
CPT/HCPCS: 99282

== ENCOUNTER → 2024-12-08 09:36 | Outpatient (BNVA) | payer OTHER, SELFPAY | PROVIDERS: Visit Provider Thoracic Surgery (Cardiothoracic Vascular Surgery) | DX: I96 Gangrene, not elsewhere classified (principal); L98.491 Non-pressure chronic ulcer of skin of other sites limited to breakdown of skin | CPT/HCPCS: 97597 ==

== ENCOUNTER → 2024-12-14 14:41 | Outpatient (BNVA) | payer OTHER, SELFPAY | PROVIDERS: PCP Nurse Practitioner; Visit Provider Physician Assistant | DX: L03.114 Cellulitis of left upper limb (principal); M25.522 Pain in left elbow | CPT/HCPCS: 99213 ==

== ENCOUNTER 2024-12-16 08:33 | Oncology outpatient (recurring) (ONCR) | payer OTHER, SELFPAY ==
[2024-11-24 12:10] LABS: Basophils % 0.4 %; Eosinophils # 0.3 10^3/uL (0.0-0.8); Eosinophils % 6.3 %; Hematocrit 36.6 % (37-53); Lymphocytes # 1.3 10^3/uL (0.8-4.8); Lymphocytes % 27.7 %; Mean Corpuscular HGB Conc 34.2 g/dL (30-55); Mean Corpuscular Hemoglobin 31.8 pg (27-33); Mean Corpuscular Volume 93.1 fl (82-101); Mean Platelet Volume 10.3 fL (7.4-10.4); Monocytes # 0.6 10^3/uL (0.2-0.9); Monocytes % 12.5 %; Neutrophils % 52.9 %; Nucleated Red Blood Cells % 0 %; Platelet Count 104 10^3/cmm (157-399); Red Blood Count 3.93 10^6/uL (3.85-5.65); Red Cell Distribution Width 12.3 % (12.1-15.1); White Blood Count 4.73 10^3/uL (3.29-11.43)
[2024-11-24 12:48] LABS: Folate Level 7.7 ng/mL (4.5-32.2)
[2024-11-24 12:50] LABS: Alanine Aminotransferase < 5 U/L (0-41); Albumin Level 3.4 g/dL (3.5-5.2); Alkaline Phosphatase 128 U/L (40-130); Anion Gap 12.8 (5-19); Aspartate Amino Transferase 16 U/L (0-40); Blood Urea Nitrogen 19 mg/dL (8-23); Carbon Dioxide 25 mmol/L (22-29); Chloride 104 mmol/L (98-107); Ferritin 271 ng/mL (30-400); Globulin 2.6 g/dL (1.3-4.6); Glucose 77 mg/dL (65-115); Iron 54 ug/dL (59-158); Osmolality Calculated 287 mOsm/kg (285-295); Percent Saturation 31.7 % (20-50); Potassium 3.8 mmol/L (3.5-5.1); Sodium 138 mmol/L (136-145); Total Bilirubin 0.4 mg/dL (0.15-1.2); Total Iron Binding Capacity 170 mcg/dl; Unsaturated Iron Binding 116 ug/dL (112-347); Vitamin B12 351 pg/mL (232-1245)
[2024-11-24 12:54] LABS: Lactate Dehydrogenase 176 U/L (135-225)
--- NOTE | 2024-12-16 09:00 | PETR_ITS ---
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 Then, PET images were obtained. Attenuation corrected images were constructed using the CT scan. Fused images of PET and CT were reviewed. The standardized uptake values (SUV) reported below are maximum values within a region of interest, expressed in gm/ml. Exam includes orbital meatal line to mid-thigh. SUV normalization method: BodyWeight Radiopharmaceutical: 10.62 mCi F-18 FDG (Fluorodeoxyglucose), IV. Time of imaging post radiopharmaceutical administration: 47 minutes Injection site: right hand COMPARISON: CR XR chest 1V portable [id number] 10/19/2024 12:03 PM FINDINGS: Brain: Visualized brain has normal physiologic uptake. Paranasal sinuses: Non FDG avid right maxillary sinus mucoperiosteal thickening compatible with chronic sinusitis. Pharynx: No abnormal uptake. Larynx: No abnormal uptake. Lungs, pleura and trachea: No abnormal uptake. Mild upper lung predominant emphysematous change. Mild bibasilar subsegmental atelectasis versus scarring. Lingular calcified granuloma. Heart: Normal physiologic uptake. Coronary arteries: Heavy coronary artery calcification. Prior CABG. Mediastinal space: No abnormal uptake. Diaphragm: Small hiatal hernia. Liver: No abnormal uptake. Gallbladder and biliary ducts: No abnormal uptake. Prior cholecystectomy. Pancreas: No abnormal uptake. Spleen: No abnormal uptake. Adrenal glands: No abnormal uptake. Kidneys and ureters: Normal physiologic uptake. Bilateral renal cysts. Stomach and bowel: No abnormal uptake. Colonic diverticulosis without findings of diverticulitis. Reproductive: Prostatomegaly without abnormal uptake. Note that the right testicle is located within the right inguinal canal. Vasculature: No abnormal uptake. Heavy systemic atherosclerotic calcification with fusiform infrarenal abdominal aorta aneurysm measuring 3.9 cm. Lymph nodes: No abnormal uptake. No lymphadenopathy in the head, neck, chest, abdomen, pelvis, and extremities. Skeleton: No suspicious abnormal uptake in the visualized axial and appendicular skeleton. 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 Partially visualized left elbow periarticular uptake is likely inflammatory. Degenerative change along the axial and proximal appendicular skeletal system. Chronic appearing avulsive injury at the right supra-acetabular region. Prior median sternotomy. Soft tissues: No abnormal uptake in the visualized head, neck, chest, abdomen, pelvis, and extremities. Left axillary surgical clips. Small fat containing left inguinal hernia. METRICS: Mediastinal blood pool: SUV mean 2.2 Liver uptake: SUV mean 2.8 PET/PET skull to thigh INIT [id number] IMPRESSION: 1. No abnormal radiotracer uptake to suggest malignancy. 2. Atherosclerosis with infrarenal abdominal aortic aneurysm measuring 3.9 cm. Follow-up imaging in 2 years is recommended. 3. Additional chronic and incidental findings as above.
== END 2024-12-19 23:59 | disposition home or self-care (01) ==
PROVIDERS: PCP Nurse Practitioner; Visit Provider Internal Medicine
DX: C4A.62 Merkel cell carcinoma of left upper limb, including shoulder (principal); I70.0 Atherosclerosis of aorta; I71.43 Infrarenal abdominal aortic aneurysm, without rupture; J34.89 Other specified disorders of nose and nasal sinuses; J43.9 Emphysema, unspecified; R91.8 Other nonspecific abnormal finding of lung field; J84.10 Pulmonary fibrosis, unspecified; I25.10 Atherosclerotic heart disease of native coronary artery without angina pectoris; Z98.890 Other specified postprocedural states; K44.9 Diaphragmatic hernia without obstruction or gangrene; Z90.49 Acquired absence of other specified parts of digestive tract; N28.1 Cyst of kidney, acquired; K57.30 Diverticulosis of large intestine without perforation or abscess without bleeding; N40.0 Benign prostatic hyperplasia without lower urinary tract symptoms; R93.89 Abnormal findings on diagnostic imaging of other specified body structures; K40.90 Unilateral inguinal hernia, without obstruction or gangrene, not specified as recurrent
CPT/HCPCS: 36592; 78815; 80053; 82607; 82728; 82746; 83010; 83540; 83550; 83615; 85025; 97597; 99204; A9552

== ENCOUNTER 2024-12-21 12:54 | Oncology outpatient (recurring) (ONCR) | payer OTHER, SELFPAY | END 2025-01-19 23:59 | disposition home or self-care (01) | PROVIDERS: PCP Nurse Practitioner; Visit Provider Internal Medicine | DX: Z08 Encounter for follow-up examination after completed treatment for malignant neoplasm (principal); Z85.821 Personal history of Merkel cell carcinoma; Z92.21 Personal history of antineoplastic chemotherapy; Z92.25 Personal history of immunosuppression therapy; Z92.3 Personal history of irradiation; L03.114 Cellulitis of left upper limb; A49.01 Methicillin susceptible Staphylococcus aureus infection, unspecified site | CPT/HCPCS: 99213 ==

== ENCOUNTER → 2024-12-22 09:27 | Outpatient (BNVA) | payer OTHER, SELFPAY | PROVIDERS: PCP Nurse Practitioner; Visit Provider Thoracic Surgery (Cardiothoracic Vascular Surgery) | DX: I96 Gangrene, not elsewhere classified (principal); L98.491 Non-pressure chronic ulcer of skin of other sites limited to breakdown of skin | CPT/HCPCS: 99212 ==

== ENCOUNTER → 2025-01-05 09:15 | Outpatient (BNVA) | payer OTHER, SELFPAY | PROVIDERS: PCP Nurse Practitioner; Visit Provider Thoracic Surgery (Cardiothoracic Vascular Surgery) | DX: I96 Gangrene, not elsewhere classified (principal); L98.491 Non-pressure chronic ulcer of skin of other sites limited to breakdown of skin | CPT/HCPCS: 97597 ==

== ENCOUNTER → 2025-01-12 12:51 | Outpatient (BNVA) | payer OTHER, SELFPAY | PROVIDERS: PCP Nurse Practitioner; Visit Provider Podiatrist Foot & Ankle Surgery | DX: I73.9 Peripheral vascular disease, unspecified (principal); L60.3 Nail dystrophy; N18.9 Chronic kidney disease, unspecified | CPT/HCPCS: 11721 ==

== ENCOUNTER → 2025-01-19 08:53 | Outpatient (BNVA) | payer OTHER, SELFPAY | PROVIDERS: PCP Nurse Practitioner; Visit Provider Thoracic Surgery (Cardiothoracic Vascular Surgery) | DX: I96 Gangrene, not elsewhere classified (principal); L98.491 Non-pressure chronic ulcer of skin of other sites limited to breakdown of skin | CPT/HCPCS: 97597 ==

== ENCOUNTER → 2025-02-16 08:31 | Outpatient (BNVA) | payer OTHER, SELFPAY | PROVIDERS: PCP Nurse Practitioner; Visit Provider Thoracic Surgery (Cardiothoracic Vascular Surgery) | DX: I96 Gangrene, not elsewhere classified (principal); L98.491 Non-pressure chronic ulcer of skin of other sites limited to breakdown of skin; C4A.9 Merkel cell carcinoma, unspecified | CPT/HCPCS: 97597 ==

== ENCOUNTER 2025-03-22 09:49 | Oncology outpatient (recurring) (ONCR) | payer OTHER, SELFPAY ==
[2025-03-22 10:26] LABS: Hematocrit 44.5 % (37-53); Hemoglobin 14.90 g/dL (11.27-16.99); Mean Corpuscular HGB Conc 33.5 g/dL (30-55); Mean Corpuscular Hemoglobin 31.6 pg (27-33); Mean Corpuscular Volume 94.5 fl (82-101); Nucleated Red Blood Cells % 0 %; Platelet Count 93 10^3/cmm (157-399); Red Blood Count 4.71 10^6/uL (3.85-5.65); White Blood Count 5.41 10^3/uL (3.29-11.43)
[2025-03-22 10:47] LABS: Alanine Aminotransferase 16 U/L (0-41); Albumin Level 4.1 g/dL (3.5-5.2); Alkaline Phosphatase 128 U/L (40-130); Anion Gap 16.9 (5-19); Aspartate Amino Transferase 22 U/L (0-40); Blood Urea Nitrogen 24 mg/dL (8-23); Calcium 9.2 mg/dL (8.5-10.5); Carbon Dioxide 23 mmol/L (22-29); Chloride 105 mmol/L (98-107); Creatinine Clr Calc Pharmacy 49.7554; Globulin 2.8 g/dL (1.3-4.6); Glucose 148 mg/dL (65-115); Osmolality Calculated 299 mOsm/kg (285-295); Potassium 3.9 mmol/L (3.5-5.1); Sodium 141 mmol/L (136-145); Total Protein 6.9 g/dL (6.6-8.7)
== END 2025-04-21 23:59 | disposition home or self-care (01) ==
PROVIDERS: PCP Nurse Practitioner; Visit Provider Internal Medicine
DX: Z08 Encounter for follow-up examination after completed treatment for malignant neoplasm (principal); Z85.821 Personal history of Merkel cell carcinoma; Z92.21 Personal history of antineoplastic chemotherapy; Z92.25 Personal history of immunosuppression therapy; Z92.3 Personal history of irradiation; Z87.891 Personal history of nicotine dependence
CPT/HCPCS: 11721; 36415; 80053; 83615; 85025; 99213

== ENCOUNTER → 2025-04-03 10:02 | Outpatient (BNVA) | payer OTHER, SELFPAY | PROVIDERS: PCP Nurse Practitioner; Visit Provider Dermatology | DX: L81.4 Other melanin hyperpigmentation (principal); L82.1 Other seborrheic keratosis; D69.2 Other nonthrombocytopenic purpura; L73.8 Other specified follicular disorders; L91.8 Other hypertrophic disorders of the skin; L21.8 Other seborrheic dermatitis; Z08 Encounter for follow-up examination after completed treatment for malignant neoplasm; Z85.821 Personal history of Merkel cell carcinoma | CPT/HCPCS: 99214 ==